=== PATIENT | male | born 1945 | race Caucasian/White ===

== ENCOUNTER 2018-01-28 12:00 | Inpatient (IN) | payer OTHER ==
--- NOTE | 2018-01-28 12:13 | ED ---
HPI Chest Pain - HPI Summary HPI Summary: Patient is brought in by ambulance with concerns of STEMI. Ambulance was not able to transmit EKG, reported x3 attempts to transmit without success. EKG with "ST elevation in V2-V5". STEMI was called at 1157am (prehospital), arrival at 1200pm, provider at bedside at 1200pm. EMS reports that patient has had prior PA years ago. Per EMS, patient has been experiencing chest pain since yesterday. However, when asked about onset of chest pain, patient repeatedly changes his story, stating onset yesterday at first, then states a week ago when asked again, then two weeks ago when asked a third time. Chest pain is left sided, states that he had a left shoulder injury sometime in the past and had thought chest pain was associated with this injury. However, chest pain is reported to not have been reproducible. Pain is rated 9/10 prior to arrival of EMS, nausea is denied. EMS gave oxygen, IV, 324 ASA and 0.4 nitro x2 with some relief in chest pain. [facility] due to concerns of continually decreased affect. [facility]. Patient is on Coumadin and 1 ASA daily, which patient took this morning. Patient is diabetic, BG was measured to be 243 by EMS. PMHx of lung CA, which reported was "doing well" per EMS, Hx of AAA repair reported with midline abd scar apparent. Patient has had "stents for abdomen", no cardiac stents reported. Dr. Shell arrived in ED at 1202. EMS EKG was reviewed, no STEMI, left bundle branch block reported instead. Dr. Hernández present in ED also. Concurs LBBB, no STEMI. On triage, pain is rated 5/10, movement of left shoulder is noted to aggravate pain. Home medications and allergies are reviewed. Vitals are pulse 94, BP 150/79, o2 96. Allergies Allergy/AdvReac Type Severity Reaction Status Date / Time morphine Allergy Hallucinati Verified 01/28/18 14:58 ons Home Medications Acetaminophen [Acetaminophen Extra Strength] 500 mg PO Q4HR PRN 01/28/18 [ History Confirmed 01/28/18] Aspirin EC TAB* [Ecotrin EC Low Dose 81 MG*] 81 mg PO DAILY 01/28/18 [History Confirmed 01/28/18] Atorvastatin* [Lipitor*] 40 mg PO DAILY 01/28/18 [History Confirmed 01/28/18] Folic Acid TAB* [Folvite TAB*] 1 mg PO DAILY 01/28/18 [History Confirmed ] Insulin Aspart Prot/Insuln Asp [Novolog Mix 70-30 Flexpen Syrn] 26 units SUBCUT QPM 01/28/18 [History Confirmed 01/28/18] Insulin Aspart Prot/Insuln Asp [Novolog Mix 70-30 Flexpen Syrn] 33 units SUBCUT QAM 01/28/18 [History Confirmed 01/28/18] LoraTADine TAB(NF) [Claritin 10 MG TAB(NF)] 10 mg PO DAILY PRN 01/28/18 [ History Confirmed 01/28/18] Methotrexate TAB* 20 mg PO WEEKLY 01/28/18 [History Confirmed 01/28/18] Metoprolol Succinate XL TAB* [Toprol XL TAB*] 200 mg PO DAILY 01/28/18 [History Confirmed 01/28/18] Multivitamins/Minerals TAB* [Theragran/minerals TAB*] 1 tab PO DAILY 01/28/18 [ History Confirmed 01/28/18] Omeprazole CAP* [Prilosec CAP* 20 MG] 20 mg PO QAM 01/28/18 [History Confirmed 01/28/18] Sacubitril/Valsartan (NF) [Entresto (NF)] 1 tab PO BID 01/28/18 [ History Confirmed 01/28/18] Salsalate TAB* [Disalcid*] 500 mg PO TID PRN 01/28/18 [History Confirmed ] Warfarin TAB(*) [Coumadin TAB(*)] 5 mg PO BEDTIME 01/28/18 [History Confirmed ] amLODIPine TAB* [Norvasc 5 mg TAB*] 5 mg PO DAILY 01/28/18 [History Confirmed ] - History of Current Complaint Time Seen by Provider: 01/28/18 12:05 Hx Obtained From: Patient, EMS Onset/Duration: Still Present - patient changes his story with regards to onset of chest pain Timing: Constant Initial Severity: Severe - 11/08 Current Severity: Moderate - 5/10 Pain Intensity: 5 Pain Scale Used: 0-10 Numeric - 5/10 Chest Pain Location: Left Anterior Chest Pain Radiates: Yes Chest Pain Radiates To:: Shoulder - left Character: Pressure/Squeezing Aggravating Factor(s): Movement - of left shoulder Alleviating Factor(s): Nothing Associated Signs and Symptoms: Positive: Chest Pain, Other: - POSITIVE: left shoulder pain. Negative: Nausea - Allergy/Home Medications Allergies/Adverse Reactions: Allergies Allergy/AdvReac Type Severity Reaction Status Date / Time morphine Allergy Hallucinati Verified 01/28/18 14:58 ons Home Medications: Home Medications Acetaminophen [Acetaminophen Extra Strength] 500 mg PO Q4HR PRN 01/28/18 [ History Confirmed 01/28/18] Aspirin EC TAB* [Ecotrin EC Low Dose 81 MG*] 81 mg PO DAILY 01/28/18 [History Confirmed 01/28/18] Atorvastatin* [Lipitor*] 40 mg PO DAILY 01/28/18 [History Confirmed 01/28/18] Folic Acid TAB* [Folvite TAB*] 1 mg PO DAILY 01/28/18 [History Confirmed ] Insulin Aspart Prot/Insuln Asp [Novolog Mix 70-30 Flexpen Syrn] 26 units SUBCUT QPM 01/28/18 [History Confirmed 01/28/18] Insulin Aspart Prot/Insuln Asp [Novolog Mix 70-30 Flexpen Syrn] 33 units SUBCUT QAM 01/28/18 [History Confirmed 01/28/18] LoraTADine TAB(NF) [Claritin 10 MG TAB(NF)] 10 mg PO DAILY PRN 01/28/18 [ History Confirmed 01/28/18] Methotrexate TAB* 20 mg PO WEEKLY 01/28/18 [History Confirmed 01/28/18] Metoprolol Succinate XL TAB* [Toprol XL TAB*] 200 mg PO DAILY 01/28/18 [History Confirmed 01/28/18] Multivitamins/Minerals TAB* [Theragran/minerals TAB*] 1 tab PO DAILY 01/28/18 [ History Confirmed 01/28/18] Omeprazole CAP* [Prilosec CAP* 20 MG] 20 mg PO QAM 01/28/18 [History Confirmed 01/28/18] Sacubitril/Valsartan (NF) [Entresto (NF)] 1 tab PO BID 01/28/18 [ History Confirmed 01/28/18] Salsalate TAB* [Disalcid*] 500 mg PO TID PRN 01/28/18 [History Confirmed ] Warfarin TAB(*) [Coumadin TAB(*)] 5 mg PO BEDTIME 01/28/18 [History Confirmed ] amLODIPine TAB* [Norvasc 5 mg TAB*] 5 mg PO DAILY 01/28/18 [History Confirmed ] PMH/Surg Hx/FS Hx/Imm Hx Previously Healthy: No Endocrine/Hematology History: Reports: Hx Diabetes - on insulin Cardiovascular History: Reports: Hx Atrial Fibrillation, Hx Myocardial Infarction Respiratory History: Reports: Hx Lung Cancer - non small cell Sensory History: Denies: Hx Legally Blind, Hx Deafness Opthamlomology History: Denies: Hx Legally Blind EENT History: Denies: Hx Deafness - Cancer History Cancer Type, Location and Year: lung cancer - Surgical History Surgery Procedure, Year, and Place: AAA repair Infectious Disease History: Denies: Traveled Outside the [place] in Last 30 Days - Family History Known Family History: Positive: Cardiac Disease - mother - [place] , Other - father - [place] - Social History Lives: With Family Alcohol Use: Occasionally Substance Use Type: Reports: None Smoking Status (MU): Former Smoker Review of Systems Constitutional: Negative Positive: Chest Pain Respiratory: Negative Negative: Nausea Positive: no symptoms reported Positive: Other - POSITIVE - LEFT SHOULDER PAIN Skin: Negative Neurological: Other - EMS states was concerned re: decreased affect Psychological: Normal All Other Systems Reviewed And Are Negative: Yes Physical Exam - Summary Physical Exam Summary: Appearance: ill-appearing, moderate pain distress, well-nourished Skin: Warm, color reflects adequate perfusion, dry Head: Normal Head/Face inspection, atraumatic Eyes: Conjunctiva clear ENT: Normal inspection Neck: Supple, no nodes, no JVD Respiratory: decreased breath sounds throughout, no respiratory distress Cardio: irregularly irregular, No murmur, pulses normal, brisk capillary refill Abdomen: Soft, nontender Bowel sounds: Present Musculoskeletal: Strength Intact/ROM intact, no calf tenderness, no edema, left shoulder without deformity, full ROM. Psychological: Normal Neuro: Alert, muscle tone normal, no focal deficit Triage Information Reviewed: Yes Vital Signs On Initial Exam: Initial Vitals Temp Pulse Resp BP Pulse Ox 97.5 F 92 20 150/79 96 01/28/18 12:04 01/28/18 12:04 01/28/18 12:04 01/28/18 12:04 01/28/18 12:04 Vital Signs Reviewed: Yes Diagnostics - Laboratory Result Diagrams: 02/01/18 05:40 02/01/18 05:40 Lab Statement: Any lab studies that have been ordered have been reviewed, and results considered in the medical decision making process. - Radiology CXR Radiology Interpretation Completed By: Radiologist Summary of Radiographic Findings: CXR IMPRESSION: 1. CARDIOMEGALY. 2. MASSLIKE OPACIFICATION OF THE LEFT UPPER LUNG. RECOMMEND FURTHER EVALUATION WITH. CONTRAST-ENHANCED CT OF THE CHEST. THIS REPORT WAS REVIEWED BY ED PHYSICIAN. - CT CTA CHEST/ABDOMEN/PELVIS CT Interpretation Completed By: Radiologist Summary of CT Findings: CHEST/ABDOMEN/PELVIS CTA IMPRESSION: No evidence of pulmonary embolus is noted. No evidence of aortic dissection is. noted. The patient is status post aortic stent graft repair with minimal [place] aneurysm. sac remaining. There is a large lung mass in the left upper lobe. This is consistent with neoplastic. process. Small 3 to 5 mm mediastinal lymph nodes are noted. Small bilateral pleural. effusions are noted. Small amount of ascites is noted. Cholelithiasis without biliary duct dilatation. Patient is status post splenectomy with residual accessory splenule. THIS REPORT WAS REVIEWED BY ED PHYSICIAN. - EKG 1201 Cardiac Rate: Other Rate - afib with rate of 80 bpm EKG Rhythm: Atrial Fibrillation ST Segment: Non-Specific Ectopy: None EKG Comparison: Other - no priors to compare to Summary of EKG Findings: EKG showed atrial fibrillation with rate of 80 BPM, IV conduction is prolonged in LBBB pattern, QTC is prolonged at 573, no acute changes, no priors to compare with. Re-Evaluation - Re-Evaluation First Eval Re-Evaluation Time: 12:45 Change: Unchanged Comment: Patient's pain is controlled. Patient's friend Bill is with him. is also coming. Critical value of serum sodium 111 is called by the lab. There are no prior labs to compare on this patient. We have requested the [facility] to send EKGs, notes and labs on the patient. Pt's friend Bill states that pt has seen oncologist in [place], Dr. Rios. Chest Pain Course/Dx - Course Course Of Treatment: Patient is brought in by ambulance with concerns of STEMI. Ambulance was not able to transmit EKG, reported x3 attempts without success. They reported EKG with ST elevation in V2-V5. STEMI was called at 1157am, arrival at 1200pm, provider at bedside at 1200pm. EMS reports that patient has had prior PA years ago. Per EMS, patient has been experiencing chest pain since yesterday. However, when asked about onset of chest pain, patient repeatedly changes his story, stating onset yesterday at first, then states a week ago when asked again, then two weeks ago when asked a third time. Chest pain is left sided, states that he had a left shoulder injury sometime in the past and had thought chest pain was associated with this injury. However, chest pain is reported to not have been reproducible. Pain is rated 9/10 prior to arrival of EMS, nausea is denied. EMS gave oxygen, IV, 324 ASA and 0.4 nitro x2 with some relief in chest pain. had called [facility] where [facility] is being followed, due to concerns of continually decreased affect. [facility]. Patient is on Coumadin and 1 ASA daily, which patient took this morning. Patient is diabetic, BG was measured to be 243 by EMS. PMHx of lung CA, which reported was "doing well" per EMS, Hx of AAA repair reported, patient has had stents for abdomen, no cardiac stents reported. Dr. Shell arrived in ED at 1202. EMS EKG was reviewed, no STEMI, left bundle branch block reported instead. On physical exam, patient is noted to be ill-appearing and in moderate pain distress. Patient's HR is a irregularly irregular. EKG showed atrial fibrillation with rate of 80 BPM, IV conduction is prolonged in LBBB pattern, QTC is prolonged at 573, no acute changes, no priors to compare with. CXR IMPRESSION: 1. CARDIOMEGALY. 2. MASSLIKE OPACIFICATION OF THE LEFT UPPER LUNG. RECOMMEND FURTHER EVALUATION WITH. CONTRAST-ENHANCED CT OF THE CHEST. CHEST/ABDOMEN/PELVIS CTA IMPRESSION: No evidence of pulmonary embolus is noted. No evidence of aortic dissection is. noted. The patient is status post aortic stent graft repair with minimal [place] aneurysm sac remaining. There is a large lung mass in the left upper lobe. This is consistent with neoplasticprocess. Small 3 to 5 mm mediastinal lymph nodes are noted. Small bilateral pleural effusions are noted. Small amount of ascites is noted. Cholelithiasis without biliary duct dilatation. Patient is status post splenectomy with residual accessory splenule. Labs showed 13.9 Hgb, RDW 17, absolute lymphs 0.5, absolute monos 1.1, INR 1.47, D-dimer 294, sodium 111, chloride 77, creatinine 0.53, BUN/creatinine ratio 28.3, glucose 191, lactic acid 1.4, calcium 8.5, magnesium 1.7, total bilirubin 1.3, procalcitonin <0.1, TSH 0.9, T4 9.84, CK-MD was 2.6, BNP was 1709, trop was 0. During ED course, patient received Lasix 40 mg IV ED ONCE ONE as initial treatment for critical value sodium 111, with assessment that pt is total body fluid overload, and diuresis would help increase Na. Serum Osm and Urine Osm and Urine Na sent, to further assess the hyponatremia. 1325 - Patient's was discussed with Dr. Mccollum, Dr. Mccollum accepts patient for admission. - Chest Pain Differential Diagnosis/HQI/PQRI: Acute PA, ACS, Angina, Aortic Aneurysm, CHF, Pulmonary Embolism - Diagnoses Provider Diagnoses: Chest pain, Mass of upper lobe of left lung, Hyponatremia, LBBB (left bundle branch block), CHF (congestive heart failure), Afib, S/P AAA repair, Poorly controlled diabetes mellitus During the Visit The Following Alert/Code Occurred: STEMI - called pre-hospital , then cancelled upon review of [facility] EKG revealing LBBB. No prior EKG to compare. Records from [facility] requested. - Provider Notifications Discussed Care Of Patient With: Jayme Lima Time Discussed With Above Provider: 12:48 Instructed by Provider To: Other - Dr. Lima was consulted on patient case, CTA of chest, abdomen, pelvis to be done to evaluate for PE with hx CA and type of pain, more so than for aorta in pt with hx AAA. 1325 - Patient's case was discussed with Dr. Mccollum, Dr. Mccollum accepts patient for admission. - Critical Care Time Critical Care Time: 30-74 min - 30 mins Discharge - Sign-Out/Discharge Documenting (check all that apply): Patient Departure - admit All imaging exams completed and their final reports reviewed: Yes - Discharge Plan Condition: Stable Disposition: ADMITTED TO [facility] - Billing Disposition and Condition Condition: STABLE Disposition: Admitted to [facility] - Attestation Statements Document Initiated by Kapil: Yes Documenting Scribe: MARIELOS CAMARENA Provider For Whom Kapil is Documenting (Include Credential): NETTA HILLMAN MD Scribe Attestation: MARIELOS Connelly, scribed for NETTA HILLMAN MD on 02/01/18 at 2348. Scribe Documentation Reviewed: Yes Provider Attestation: The documentation as recorded by the donibMARIELOS watson accurately reflects the service I personally performed and the decisions made by me, NETTA HILLMAN MD Status of Scribe Document: Viewed
[2018-01-28 12:20] LABS: ABS Basophils 0 10^3/ul (0-0.2); ABS Eosinophils 0 10^3/ul (0-0.6); ABS Lymphocytes 0.5 10^3/ul (1.0-4.8); ABS Monocytes 1.1 10^3/ul (0-0.8); ABS Neutrophils 7.5 10^3/ul (1.5-7.7); ABS Nucleated RBC 0 10^3/ul; Eosinophil % 0.1 %; Hematocrit 42 % (42-52); Hemoglobin 13.9 g/dl (14.0-18.0); Lymphocyte % 5.9 %; Mean Corpuscular HGB Conc 33 g/dl (31-36); Mean Corpuscular Hemoglobin 29 pg (27-31); Mean Corpuscular Volume 88 fL (80-94); Mean Platelet Volume 7.7 fL (7.4-10.4); Nucleated Red Blood Cells % 0.2; Platelet Count 284 10^3/ul (150-450); Red Blood Count 4.76 10^6/ul (4.00-5.40); Red Cell Distribution Width 17 % (10.5-15); White Blood Count 9.3 10^3/ul (3.5-10.8)
[2018-01-28 12:34] LABS: INR 1.47 (0.77-1.02)
[2018-01-28 12:37] LABS: EGFR Non-African American 153.3 (>60)
[2018-01-28] MEDS ORDERED: Iodixanol* (CONTRAST) 320 MG/ML 100 ML SDV IV ONE (13:11)
[2018-01-28] MEDS ORDERED: Furosemide IV* 10 MG/ML VIAL (40 MG) IV ONE (13:18)
--- NOTE | 2018-01-28 15:31 | HP ---
H&P (Free Text) History and Physical: History and Physical -- Critical Care Limitations in history/physical: none HPI: 72y M w/pmhx of NSC Lung Ca stage 2b (s/p radiation, refused chemo, completed tx 5-6m back), Afib on warfarin, AAA s/p stent, past history of NE ( unclear if stents), DM; has been recently developing shortness of breath and increasing Lower extremity edema as per and patient. He has had left sided chest pain for weeks, initially starting due to a injury. He reported increased pain and was told to come to ER, STEMI alert called and ruled out for suspicion for STEMI. EKG demonstrated LBBB pattern, afib. He reports no fever/chills, no n /v/abd pain. Has LE edema+. no seizures/syncope/changes in mental status as per . I have called his oncologist Dr Rios and obtained further history about his condition. ROS: negative except for pertinent positives mentioned above. PMHx: NSC Lung Ca stage 2b (s/p radiation, refused chemo, completed tx 5-6m back ), Afib on warfarin, AAA s/p stent, past history of NE (unclear if stents), DM PSHx: AAA repair with endovascular stent Family History: mother-NE, father-cancer; unknown in brother () and sister () Social History: Alcohol-none, Smoking-former/stopped , Drug use-none; Job- doesnt work now; family- Allergies: Allergies Allergy/AdvReac Type Severity Reaction Status Date / Time morphine Allergy Hallucinati Verified 01/28/18 14:58 ons Home Medications: Acetaminophen [Acetaminophen Extra Strength] 500 mg PO Q4HR PRN 01/28/18 [ History Confirmed 01/28/18] Aspirin EC TAB* [Ecotrin EC Low Dose 81 MG*] 81 mg PO DAILY 01/28/18 [History Confirmed 01/28/18] Atorvastatin* [Lipitor*] 40 mg PO DAILY 01/28/18 [History Confirmed 01/28/18] Folic Acid TAB* [Folvite TAB*] 1 mg PO DAILY 01/28/18 [History Confirmed ] Insulin Aspart Prot/Insuln Asp [Novolog Mix 70-30 Flexpen Syrn] 26 units SUBCUT QPM 01/28/18 [History Confirmed 01/28/18] Insulin Aspart Prot/Insuln Asp [Novolog Mix 70-30 Flexpen Syrn] 33 units SUBCUT QAM 01/28/18 [History Confirmed 01/28/18] LoraTADine TAB(NF) [Claritin 10 MG TAB(NF)] 10 mg PO DAILY PRN 01/28/18 [ History Confirmed 01/28/18] Methotrexate TAB* 20 mg PO WEEKLY 01/28/18 [History Confirmed 01/28/18] Metoprolol Succinate XL TAB* [Toprol XL TAB*] 200 mg PO DAILY 01/28/18 [History Confirmed 01/28/18] Multivitamins/Minerals TAB* [Theragran/minerals TAB*] 1 tab PO DAILY 01/28/18 [ History Confirmed 01/28/18] Omeprazole CAP* [Prilosec CAP* 20 MG] 20 mg PO QAM 01/28/18 [History Confirmed 01/28/18] Sacubitril/Valsartan (NF) [Entresto (NF)] 1 tab PO BID 01/28/18 [ History Confirmed 01/28/18] Salsalate TAB* [Disalcid*] 500 mg PO TID PRN 01/28/18 [History Confirmed ] Warfarin TAB(*) [Coumadin TAB(*)] 5 mg PO BEDTIME 01/28/18 [History Confirmed ] amLODIPine TAB* [Norvasc 5 mg TAB*] 5 mg PO DAILY 01/28/18 [History Confirmed ] Tele: afib, rate controlled Vitals: Vital Signs Temp 97.5 F 01/28/18 12:04 Pulse 62 01/28/18 14:22 Resp 16 01/28/18 14:22 BP 155/78 01/28/18 14:22 Pulse Ox 96 01/28/18 14:22 Intake & Output 01/27/18 01/28/18 01/28/18 18:59 06:59 18:59 Output Total 400 Balance -400 Output: Urine 400 O2/Vent: NC Infusions: heplock Current Medications: Amlodipine Besylate (Norvasc Tab*) 5 mg PO DAILY [facility] Aspirin (Aspirin Ec Tab*) 81 mg PO DAILY [facility] Atorvastatin Calcium (Lipitor*) 40 mg PO DAILY [facility] Folic Acid (Folvite Tab*) 1 mg PO DAILY [facility] Metoprolol Succinate (Toprol Xl Tab*) 200 mg PO DAILY [facility] Omeprazole (Prilosec Cap*) 20 mg PO QAM [facility] Sacubitril/Valsartan (Entresto (Nf)) 1 tab PO BID [facility] Physical Exam: General: awake, alert, no distress, no diaphoresis Head: normocephalic, atraumatic HEENT: no pallor, no icterus, moist mucous membranes Neck: soft, supple, no jvd, no stridor CVS: normal rate, regular, no murmur Resp: bilateral air entry, no rhales, no wheeze, no rhonchi, no acc muscle use Abdomen: soft, obese, nontender, nondistended, bowel sounds present Ext: pulses+, warm, 3+ LE edema bilaterally Skin: intact Neuro: awake, alert, orientedx3, moving all extremities, no gross focal deficit Labs: Laboratory Results - last 24 hr 01/28/18 01/28/18 01/28/18 12:04 12:04 12:04 WBC 9.3 RBC 4.76 Hgb 13.9 L Hct 42 MCV 88 MCH 29 MCHC 33 RDW 17 H Plt Count 284 MPV 7.7 Neut % (Auto) 81.2 Lymph % (Auto) 5.9 [place] % (Auto) 12.4 Eos % (Auto) 0.1 Baso % (Auto) 0.4 Absolute Neuts (auto) 7.5 Absolute Lymphs (auto) 0.5 L Absolute Monos (auto) 1.1 H Absolute Eos (auto) 0 Absolute Basos (auto) 0 Absolute Nucleated RBC 0 Nucleated RBC % 0.2 INR (Anticoag Therapy) 1.47 H APTT 31.8 D-Dimer, Quantitative 294 H Sodium 111 L* Potassium 4.5 Chloride 77 L Carbon Dioxide 25 Anion Gap 9 BUN 15 Creatinine 0.53 L Est GFR ( Amer) 185.4 Est GFR (Non-Af Amer) 153.3 BUN/Creatinine Ratio 28.3 H Glucose 191 H Serum Osmolality Lactic Acid Calcium 8.5 L Magnesium 1.7 L Total Bilirubin 1.30 H AST 18 ALT 23 Alkaline Phosphatase 67 Total Creatine Kinase 36 CK-MB (CK-2) 2.6 Troponin I 0.00 B-Natriuretic Peptide Total Protein 6.2 L Albumin 3.4 Globulin 2.8 Albumin/Globulin Ratio 1.2 Procalcitonin TSH 0.90 Thyroxine (T4) 9.84 01/28/18 01/28/18 01/28/18 12:04 12:04 12:04 WBC RBC Hgb Hct MCV MCH MCHC RDW Plt Count MPV Neut % (Auto) Lymph % (Auto) [place] % (Auto) Eos % (Auto) Baso % (Auto) Absolute Neuts (auto) Absolute Lymphs (auto) Absolute Monos (auto) Absolute Eos (auto) Absolute Basos (auto) Absolute Nucleated RBC Nucleated RBC % INR (Anticoag Therapy) APTT D-Dimer, Quantitative Sodium Potassium Chloride Carbon Dioxide Anion Gap BUN Creatinine Est GFR ( Amer) Est GFR (Non-Af Amer) BUN/Creatinine Ratio Glucose Serum Osmolality Lactic Acid 1.4 Calcium Magnesium Total Bilirubin AST ALT Alkaline Phosphatase Total Creatine Kinase CK-MB (CK-2) Troponin I B-Natriuretic Peptide 1709 H Total Protein Albumin Globulin Albumin/Globulin Ratio Procalcitonin < 0.1 TSH Thyroxine (T4) 01/28/18 12:04 WBC RBC Hgb Hct MCV MCH MCHC RDW Plt Count MPV Neut % (Auto) Lymph % (Auto) [place] % (Auto) Eos % (Auto) Baso % (Auto) Absolute Neuts (auto) Absolute Lymphs (auto) Absolute Monos (auto) Absolute Eos (auto) Absolute Basos (auto) Absolute Nucleated RBC Nucleated RBC % INR (Anticoag Therapy) APTT D-Dimer, Quantitative Sodium Potassium Chloride Carbon Dioxide Anion Gap BUN Creatinine Est GFR ( Amer) Est GFR (Non-Af Amer) BUN/Creatinine Ratio Glucose Serum Osmolality 245 L Lactic Acid Calcium Magnesium Total Bilirubin AST ALT Alkaline Phosphatase Total Creatine Kinase CK-MB (CK-2) Troponin I B-Natriuretic Peptide Total Protein Albumin Globulin Albumin/Globulin Ratio Procalcitonin TSH Thyroxine (T4) Imaging: CTA chest/abd/pelvis 01/28 no PE; Left upper lobe mass+ (report reviewed) Assessment: 72y M w/pmhx of NSC Lung Ca stage 2b (s/p radiation, refused chemo, completed tx 5-6m back), Afib on warfarin, AAA s/p stent, past history of NE ( unclear if stents), DM; has been recently developing shortness of breath and increasing Lower extremity edema as per and patient. He has had left sided chest pain for weeks, initially starting due to a injury. He reported increased pain and was told to come to ER, STEMI alert called and ruled out for suspicion for STEMI. EKG demonstrated LBBB pattern, afib. Found to have severe hyponatremia of 111, with signs of peripheral edema. -Severe Hyponatremia, with evidence of hypervolemia, mild symptoms -Peripheral edema/volume overload -suspected CHF, unspecified type -Chest pain h/o NSC Lung CA s/p radiation Plan: Neuro- awake/alert. Mild symptoms of hyponatremia present as per history, no seizures. No indication for acute hypertonic saline administration. Delirium prec. Fall prec. CVS- -Chest pain, unclear if purely cardiac. Trop neg. Musculoskeletal? Trend troponins. EKG with afib/LBBB pattern. -Afib, likely for the reason warfarin being taken. Rate controlled. Cont metoprolol. INR subtherapeutic. Start lovenox 1mg/kg sq bid. -ECHO to eval LV function. LE edema+, would benefit from IV diuretics. Monitor Na q4h. -Cont asa for old NE? and for AAA stent. Resp- no resp distress, on NC. CTA without PE. Noted FRANCHESCA mass, confirmed from oncologist. s/p radiation. No acute infiltrative process. ID- afebrile. Wbc normal. No acute infectious process. No abx indicated. GI- diabetic/cardiac diet. Fluid restrict for now. GI proph. Renal- -Cr stable. K okay. NO acidosis -Severe hyponatremia, with evidence of hypervolemia. Pending urine osm and urine Na levels. Not on diuretics, reviewed other medications. Has NSCL Ca, which typically doesnt cause SIADH production exogenously. May be related to possible congestive heart failure. Given no severe neurological symptoms, will hold off hypertonic saline administration. IV Lasix 40mg x1 given in ER already. Check BMP q4h. if improving with diuretics, will continue. Fluid restrict. Follow urine output. May need IV NS also side by side, a relatively hypertonic solution for patient. Slow diuresis. Likely ongoing hyponatremia so will treat as chronic, goal Na change 10-12/day and 1/hr maximal rate. check tsh, r/o adrenal insuff; noted to be on prednisone for SOB recently but not chronically. -nephrology consult for assistance Heme- hg stable. Plt stable. INR subtherap; start lovenox 1mg/kg bid sq tx for Afib. -unclear reason for methotrexate administration. will need to followup. Endo- fingerstick achs; convert novolog 70/30 33/26 U to lantus, will followup with pharmacy. Add shortacting aspart achs. Check tsh and hba1c Musculsk- pressure ulcer prophylaxis. Bedrest. Wounds- none Nutrition- cardiac/diabetic diet, fluid restrict DVT prophylaxis: lovenox sq GI prophylaxis: ppi Central Line: no Arterial Line: no Briseno Cathetor: no Disposition: admit to ICU; expected LOS >2 midnights Code Status: full code Total Critical Care time is 45 minutes, excluding procedures/teaching Mayo Sterling MD Oil Burn[employer] Technician (Electronically Signed)
--- NOTE | 2018-01-28 16:00 | ECHO ---
Patient: RAJEEV CHRISTIANSON [facility] Rec#: [id number] : 1945 Date: 01/28/2018 Age: 72y Height: 168 cm / 66.1 in Weight: 109.1 kg / 240.5 lbs Sex: M BSA: 2.17 Room#: -14 Admit Date#: 01/28/2018 Type: Inpatient Referring: Mayo Sterling Reading: Aiden Shell DO Farm Contractor Buyer: Shelby De RDCS Transthoracic Echocardiogram Indication: Congestive heart failure BP: 155/78 HR: 61 Rhythm: NSR with PACs Findings History: AK, ischemic cardiomyopathy, lung cancer, DM. Technical Comments: The study quality is fair. Completed at 1600. Left Ventricle: The left ventricular chamber size is mildly dilated. Mild concentric left ventricular hypertrophy is observed. There is global hypokinesis of the left ventricle with minor regional variation. There is severely decreased left ventricular systolic function. The estimated ejection fraction is less than 20%. There is a left ventricular septal wall motion abnormality observed, possibly due to the presence of a right bundle branch block. The assessment of diastolic function is non-diagnostic. Left Atrium: The left atrium is severely dilated. Right Ventricle: The right ventricle is moderately dilated. The right ventricular global systolic function is moderately reduced. Right Atrium: The right atrial cavity size is severely dilated. Aortic Valve: The aortic valve is trileaflet. The aortic valve leaflets are mildly thickened. There is a trace of aortic regurgitation. There is no evidence of aortic stenosis. Mitral Valve: Moderate mitral annular calcification present. The mitral valve leaflets are mildly thickened. There is mild to moderate mitral regurgitation. There is no evidence of mitral stenosis. Tricuspid Valve: The tricuspid valve leaflets are normal. There is mild to moderate tricuspid regurgitation. The right ventricular systolic pressure is estimated at 52 mmHg. There is evidence of moderate pulmonary hypertension. There is no tricuspid stenosis. Pulmonic Valve: The pulmonic valve appears normal. There is a trace pulmonic regurgitation. There is no pulmonic stenosis. Pericardium: There is no significant pericardial effusion. Aorta: There is borderline dilatation of the ascending aorta. The aortic arch is not well visualized. There is mild dilatation of the aortic root. Pulmonary Artery: The main pulmonary artery is not well visualized. Venous: The inferior vena cava is dilated. There is an approximate 50% respiratory change in the inferior vena cava dimension. Conclusions The left ventricular chamber size is mildly dilated. Mild concentric left ventricular hypertrophy is observed. There is severely decreased left ventricular systolic function. The estimated ejection fraction is less than 20%. The left atrium is severely dilated. The right ventricle is moderately dilated. The right ventricular global systolic function is moderately reduced. There is mild to moderate mitral and tricuspid regurgitation. There is evidence of moderate pulmonary hypertension. None prior for comparison at time of interpretation Measurements Name Value Normal Range RVIDd (AP) 2D 4.2 cm (0.9 - 2.6) RVDdMajor (2D) 5.7 cm (2.2 - 4.4) RAd ISD 4CH 7.4 cm (3.4 - 4.9) RA (A4C)W 5.7 cm (2.9 - 4.6) IVSd (2D) 1.2 cm (0.6 - 1) LVPWd (2D) 1.3 cm (0.6 - 1) LVIDd (2D) 5.8 cm (3.6 - 5.4) LVIDs (2D) 5.7 cm - LV FS (2D) 1 % (25 - 45) Aortic Annulus 2 cm (1.4 - 2.6) Ao root diameter (2D) 4 cm (2.1 - 3.5) Ascending Ao 3.4 cm (2.1 - 3.4) LA dimension (AP) 2D 5.3 cm (2.3 - 3.8) LAd ISD 4CH 7.3 cm (2.9 - 5.3) LA ISD 4CH W 5.6 cm (2.5 - 4.5) Name Value Normal Range LA ESV BP (A/L) index 70 ml/m2 - Name Value Normal Range MV E-wave Vmax 1.2 m/sec - MV deceleration time 167 msec - LV septal e' Vmax 0.03 m/sec - LV lateral e' Vmax 0.08 m/sec - LV E:e' septal ratio 40 ratio - LV E:e' lateral ratio 15 ratio - Name Value Normal Range AV Vmax 1.4 m/sec - AV VTI 23 cm - AV peak gradient 8 mmHg - AV mean gradient 4 mmHg - LVOT Vmax 0.8 m/sec - LVOT VTI 12.7 cm - LVOT peak gradient 2 mmHg - LVOT mean gradient 1 mmHg - ELISSA Vmax 0.5 m/sec - Name Value Normal Range TR Vmax 3.3 m/sec - TR peak gradient 44 mmHg - RAP 8 mmHg - RVSP 52 mmHg - IVC diameter 2.9 cm - Name Value Normal Range PV Vmax 1.2 m/sec - PV peak gradient 6 mmHg -
[2018-01-28 16:07] LABS: EGFR Non-African American 153.3 (>60)
[2018-01-28] MEDS ORDERED: Magnesium Sulfate IV* 2 GM in NS 0.9% 100 ML* 100 ML IV ONE (17:00)
[2018-01-28] MEDS: Insulin ISOPH/REG 70/30 (*) 1 UNITS UNIT SUBCUT SCH ×2 (19:16→21:17)
[2018-01-28 20:49] LABS: EGFR Non-African American 132.8 (>60)
[2018-01-28] MEDS ORDERED: Furosemide IV* 10 MG/ML 2 ML VIAL (20 MG) IV ONE (21:00)
[2018-01-28] MEDS ORDERED: Furosemide IV* 10 MG/ML 2 ML VIAL (20 MG) ONE (21:13)
[2018-01-28] MEDS: SACUBITRIL PO SCH (21:17)
[2018-01-28] MEDS: VALSARTAN PO SCH (21:17)
[2018-01-28] MEDS: Nystatin TOP POWDER* 15 GM BTL TOPICAL SCH (22:00)
[2018-01-29 00:39] LABS: EGFR Non-African American 140.9 (>60)
[2018-01-29] MEDS ORDERED: Potassium Chlor TAB* 20 MEQ TAB.ER PO ONE ×2 (00:46→21:16)
[2018-01-29] MEDS ORDERED: ALPRAZolam TAB* 0.25 MG PO ONE (00:46)
[2018-01-29 04:19] LABS: Hematocrit 39 % (42-52); Mean Corpuscular HGB Conc 33 g/dl (31-36); Mean Corpuscular Hemoglobin 29 pg (27-31); Mean Corpuscular Volume 88 fL (80-94); Mean Platelet Volume 7.2 fL (7.4-10.4); Platelet Count 263 10^3/ul (150-450); Red Blood Count 4.43 10^6/ul (4.00-5.40); Red Cell Distribution Width 18 % (10.5-15); White Blood Count 10.2 10^3/ul (3.5-10.8)
[2018-01-29 04:25] LABS: INR 1.35 (0.77-1.02)
[2018-01-29 04:37] LABS: EGFR Non-African American 143.8 (>60)
[2018-01-29] MEDS: Atorvastatin* 40 MG TAB PO SCH (08:17)
[2018-01-29] MEDS: Aspirin EC TAB* 81 MG TAB.EC PO SCH (08:17)
[2018-01-29] MEDS: Insulin ISOPH/REG 70/30 (*) 1 UNITS UNIT SUBCUT SCH ×3 (08:18→18:58)
[2018-01-29] MEDS: Folic Acid TAB* 1 MG PO SCH (08:18)
[2018-01-29] MEDS: amLODIPine TAB* 5 MG PO SCH (08:18)
[2018-01-29] MEDS: SACUBITRIL PO SCH ×2 (08:48→20:26)
[2018-01-29] MEDS: VALSARTAN PO SCH ×2 (08:48→20:26)
[2018-01-29] MEDS: Nystatin TOP POWDER* 15 GM BTL TOPICAL SCH ×2 (08:48→20:26)
[2018-01-29] MEDS ORDERED: Metoprolol Succinate XL TAB* 100 MG PO SCH (09:00)
[2018-01-29 09:19] LABS: EGFR Non-African American 153.3 (>60)
--- NOTE | 2018-01-29 09:51 | PN ---
Progress Note - Progress Note Date of Service: 01/29/18 Note: Progress Note -- Critical Care 24 hour events: -overnight no complaints offered, awake/alert -good urine output -afebrile Tele: afib, fariha Vitals: Vital Signs Temp 97.5 F 01/29/18 08:01 Pulse 47 01/29/18 08:01 Resp 23 01/29/18 08:01 BP 120/47 01/29/18 08:01 Pulse Ox 93 01/29/18 08:01 Intake & Output 01/28/18 01/29/18 01/29/18 18:59 06:59 18:59 Intake Total 120 400 Output Total 1750 2525 70 Balance -0 -5 -70 Weight 111.8 kg 109.8 kg Intake: IV Fluids 101 NS (0.9%) 101 IVPB 59 Magnesium 59 Oral 120 240 Output: Urine 1750 Briseno 2525 70 Other: Estimated Void Large # Voids 1 O2/Vent: NC 2L Infusions: heplock Current Medications: Amlodipine Besylate (Norvasc Tab*) 5 mg PO DAILY [facility] Last Admin: 01/29/18 08:18 Dose: 5 mg Aspirin (Aspirin Ec Tab*) 81 mg PO DAILY [facility] Last Admin: 01/29/18 08:17 Dose: 81 mg Atorvastatin Calcium (Lipitor*) 40 mg PO DAILY [facility] Last Admin: 01/29/18 08:17 Dose: 40 mg Folic Acid (Folvite Tab*) 1 mg PO DAILY [facility] Last Admin: 01/29/18 08:18 Dose: 1 mg Insulin Human Isoph/Insulin Regular (Humulin 70/30 (*)) 33 units SUBCUT 0800 [facility] Last Admin: 01/29/18 08:34 Dose: Not Given Insulin Human Isoph/Insulin Regular (Humulin 70/30 (*)) 26 units SUBCUT 1700 [facility] Last Admin: 01/28/18 21:17 Dose: 26 units Metoprolol Succinate (Toprol Xl Tab*) 100 mg PO DAILY [facility] Nystatin (Nystatin Top Powder*) 1 applic TOPICAL BID [facility] Last Admin: 01/29/18 08:48 Dose: 1 applic Omeprazole (Prilosec Cap*) 20 mg PO QAM@0730 [facility] Sacubitril/Valsartan (Entresto (Nf)) 1 tab PO BID [facility] Last Admin: 01/29/18 08:48 Dose: 1 tab Physical Exam: General: awake, alert, no distress, no diaphoresis Head: normocephalic, atraumatic HEENT: no pallor, no icterus, moist mucous membranes Neck: soft, supple, no jvd, no stridor CVS: normal rate, regular, no murmur Resp: bilateral air entry, no rhales, no wheeze, no rhonchi, no acc muscle use Abdomen: soft, obese, nontender, nondistended, bowel sounds present Ext: pulses+, warm, 2+ LE edema bilaterally Skin: intact Neuro: awake, alert, orientedx3, moving all extremities, no gross focal deficit Labs: Laboratory Results - last 24 hr 01/28/18 01/28/18 01/28/18 12:04 12:04 12:04 WBC 9.3 RBC 4.76 Hgb 13.9 L Hct 42 MCV 88 MCH 29 MCHC 33 RDW 17 H Plt Count 284 MPV 7.7 Neut % (Auto) 81.2 Lymph % (Auto) 5.9 [place] % (Auto) 12.4 Eos % (Auto) 0.1 Baso % (Auto) 0.4 Absolute Neuts (auto) 7.5 Absolute Lymphs (auto) 0.5 L Absolute Monos (auto) 1.1 H Absolute Eos (auto) 0 Absolute Basos (auto) 0 Absolute Nucleated RBC 0 Nucleated RBC % 0.2 INR (Anticoag Therapy) 1.47 H APTT 31.8 D-Dimer, Quantitative 294 H Sodium 111 L* Potassium 4.5 Chloride 77 L Carbon Dioxide 25 Anion Gap 9 BUN 15 Creatinine 0.53 L Est GFR ( Amer) 185.4 Est GFR (Non-Af Amer) 153.3 BUN/Creatinine Ratio 28.3 H Glucose 191 H POC Glucose (mg/dL) Hemoglobin A1c Serum Osmolality Lactic Acid Calcium 8.5 L Magnesium 1.7 L Total Bilirubin 1.30 H AST 18 ALT 23 Alkaline Phosphatase 67 Total Creatine Kinase 36 CK-MB (CK-2) 2.6 Troponin I 0.00 B-Natriuretic Peptide Total Protein 6.2 L Albumin 3.4 Globulin 2.8 Albumin/Globulin Ratio 1.2 Procalcitonin TSH 0.90 Thyroxine (T4) 9.84 Urine Osmolality U Sodium Concentration 01/28/18 01/28/18 01/28/18 12:04 12:04 12:04 WBC RBC Hgb Hct MCV MCH MCHC RDW Plt Count MPV Neut % (Auto) Lymph % (Auto) [place] % (Auto) Eos % (Auto) Baso % (Auto) Absolute Neuts (auto) Absolute Lymphs (auto) Absolute Monos (auto) Absolute Eos (auto) Absolute Basos (auto) Absolute Nucleated RBC Nucleated RBC % INR (Anticoag Therapy) APTT D-Dimer, Quantitative Sodium Potassium Chloride Carbon Dioxide Anion Gap BUN Creatinine Est GFR ( Amer) Est GFR (Non-Af Amer) BUN/Creatinine Ratio Glucose POC Glucose (mg/dL) Hemoglobin A1c Serum Osmolality Lactic Acid 1.4 Calcium Magnesium Total Bilirubin AST ALT Alkaline Phosphatase Total Creatine Kinase CK-MB (CK-2) Troponin I B-Natriuretic Peptide 1709 H Total Protein Albumin Globulin Albumin/Globulin Ratio Procalcitonin < 0.1 TSH Thyroxine (T4) Urine Osmolality U Sodium Concentration 01/28/18 01/28/18 01/28/18 12:04 15:33 16:30 WBC RBC Hgb Hct MCV MCH MCHC RDW Plt Count MPV Neut % (Auto) Lymph % (Auto) [place] % (Auto) Eos % (Auto) Baso % (Auto) Absolute Neuts (auto) Absolute Lymphs (auto) Absolute Monos (auto) Absolute Eos (auto) Absolute Basos (auto) Absolute Nucleated RBC Nucleated RBC % INR (Anticoag Therapy) APTT D-Dimer, Quantitative Sodium 114 L* Potassium 4.5 Chloride 79 L Carbon Dioxide 25 Anion Gap 10 BUN 13 Creatinine 0.53 L Est GFR ( Amer) 185.4 Est GFR (Non-Af Amer) 153.3 BUN/Creatinine Ratio 24.5 H Glucose 198 H POC Glucose (mg/dL) Hemoglobin A1c Serum Osmolality 245 L Lactic Acid Calcium 8.6 Magnesium Total Bilirubin AST ALT Alkaline Phosphatase Total Creatine Kinase CK-MB (CK-2) Troponin I 0.01 B-Natriuretic Peptide Total Protein Albumin Globulin Albumin/Globulin Ratio Procalcitonin TSH Thyroxine (T4) Urine Osmolality U Sodium Concentration 67 01/28/18 01/28/18 01/29/18 16:30 20:20 00:13 WBC RBC Hgb Hct MCV MCH MCHC RDW Plt Count MPV Neut % (Auto) Lymph % (Auto) [place] % (Auto) Eos % (Auto) Baso % (Auto) Absolute Neuts (auto) Absolute Lymphs (auto) Absolute Monos (auto) Absolute Eos (auto) Absolute Basos (auto) Absolute Nucleated RBC Nucleated RBC % INR (Anticoag Therapy) APTT D-Dimer, Quantitative Sodium 114 L* 115 L* Potassium TNP 3.5 Chloride 80 L 81 L Carbon Dioxide 26 28 Anion Gap 8 6 BUN 11 11 Creatinine 0.60 L 0.57 L Est GFR ( Amer) 160.7 170.5 Est GFR (Non-Af Amer) 132.8 140.9 BUN/Creatinine Ratio 18.3 19.3 Glucose 211 H 183 H POC Glucose (mg/dL) Hemoglobin A1c Serum Osmolality Lactic Acid Calcium 8.0 L 7.7 L Magnesium Total Bilirubin AST ALT Alkaline Phosphatase Total Creatine Kinase CK-MB (CK-2) Troponin I 0.01 B-Natriuretic Peptide Total Protein Albumin Globulin Albumin/Globulin Ratio Procalcitonin TSH Thyroxine (T4) Urine Osmolality 250 U Sodium Concentration 01/29/18 01/29/18 01/29/18 04:11 04:11 04:11 WBC 10.2 RBC 4.43 Hgb 13.0 L Hct 39 L MCV 88 MCH 29 MCHC 33 RDW 18 H Plt Count 263 MPV 7.2 L Neut % (Auto) Lymph % (Auto) [place] % (Auto) Eos % (Auto) Baso % (Auto) Absolute Neuts (auto) Absolute Lymphs (auto) Absolute Monos (auto) Absolute Eos (auto) Absolute Basos (auto) Absolute Nucleated RBC Nucleated RBC % INR (Anticoag Therapy) APTT D-Dimer, Quantitative Sodium 118 L* Potassium 3.5 Chloride 83 L Carbon Dioxide 30 Anion Gap 5 BUN 10 Creatinine 0.56 L Est GFR ( Amer) 174.0 Est GFR (Non-Af Amer) 143.8 BUN/Creatinine Ratio 17.9 Glucose 114 H POC Glucose (mg/dL) Hemoglobin A1c 8.3 H Serum Osmolality Lactic Acid Calcium 7.7 L Magnesium Total Bilirubin AST ALT Alkaline Phosphatase Total Creatine Kinase CK-MB (CK-2) Troponin I B-Natriuretic Peptide Total Protein Albumin Globulin Albumin/Globulin Ratio Procalcitonin TSH Thyroxine (T4) Urine Osmolality U Sodium Concentration 01/29/18 01/29/18 01/29/18 04:11 08:27 08:30 WBC RBC Hgb Hct MCV MCH MCHC RDW Plt Count MPV Neut % (Auto) Lymph % (Auto) [place] % (Auto) Eos % (Auto) Baso % (Auto) Absolute Neuts (auto) Absolute Lymphs (auto) Absolute Monos (auto) Absolute Eos (auto) Absolute Basos (auto) Absolute Nucleated RBC Nucleated RBC % INR (Anticoag Therapy) 1.35 H APTT D-Dimer, Quantitative Sodium 120 L Potassium TNP Chloride 83 L Carbon Dioxide 30 Anion Gap 7 BUN 11 Creatinine 0.53 L Est GFR ( Amer) 185.4 Est GFR (Non-Af Amer) 153.3 BUN/Creatinine Ratio 20.8 H Glucose 77 POC Glucose (mg/dL) 97 Hemoglobin A1c Serum Osmolality Lactic Acid Calcium 7.9 L Magnesium Total Bilirubin AST ALT Alkaline Phosphatase Total Creatine Kinase CK-MB (CK-2) Troponin I B-Natriuretic Peptide Total Protein Albumin Globulin Albumin/Globulin Ratio Procalcitonin TSH Thyroxine (T4) Urine Osmolality U Sodium Concentration Imaging: CTA chest/abd/pelvis 01/28 no PE; Left upper lobe mass+ (report reviewed) Assessment: 72y M w/pmhx of [facility] Lung Ca stage 2b (s/p radiation, refused chemo, completed tx 5-6m back), Afib on warfarin, AAA s/p stent, past history of PA ( unclear if stents), DM; has been recently developing shortness of breath and increasing Lower extremity edema as per and patient. He has had left sided chest pain for weeks, initially starting due to a injury. He reported increased pain and was told to come to ER, STEMI alert called and ruled out for suspicion for STEMI. EKG demonstrated LBBB pattern, afib. Found to have severe hyponatremia of 111, with signs of peripheral edema. -Severe Hyponatremia, with evidence of hypervolemia, mild symptoms -Peripheral edema/volume overload -suspected CHF, unspecified type -Chest pain h/o [facility] Lung CA s/p radiation Plan: Neuro- awake/alert. asymptomatic. Delirium prec. Fall prec. CVS- -Chest pain resolved it seems. Trop neg. Musculoskeletal? EKG with afib/LBBB pattern. -Afib, farhia 50s. Rate controlled. Dec Metoprolol succinate to 100mg daily. INR subtherapeutic. restart warfarin, bridge with lovenox 1mg/kg sq bid. -TTE 01/28 with severe LV systolic dysfunction, mod MR, mild RV dysfunction, pulm htn+. [facility] to [facility] if [facility] old and workup performed. He is unclear if he was advised AICD -LE edema+. likely from CHF + increased free water intake and no sodium intake. restrict free water. diuresed well with lasix. given Na is increasing now, will re-eval tomorrow and start low dose daily lasix to continue to augment urine output. -Cont asa for old PA? and for AAA stent. Resp- no resp distress, on NC. CTA without PE. Noted FRANCHESCA mass, confirmed from oncologist. s/p radiation. No acute infiltrative process. ID- afebrile. Wbc normal. No acute infectious process. No abx indicated. GI- diabetic/cardiac diet. Fluid restrict for now. GI proph. Renal- -Cr stable. K okay. NO acidosis -Severe hyponatremia, improving, no symptoms. Seems he has a lot of free water intake and restricted salt completely, combined with his severe LV dysfunction likely caused the hyponatremia. Urine osmo and serum osmo low, so likely was taking in more free water. Diuretics did help but he was advised to restrict free water to lower quantities, and not fully restrict sodium intake. Will need diuretics daily for LE edema but re-eval tomorrow and add low dose furosemide 20mg based on subsequent sodium levels. Sodium has changed by 9 in 20 hours. -discussed with nephrology Heme- hg stable. Plt stable. INR subtherap; start lovenox 1mg/kg bid sq tx for Afib, start warfarin today. -unclear reason for methotrexate administration. will need to followup. Endo- fingerstick achs; converted novolog mix to humulin 70/30 33/26 U. TSH normal. [id number] tsh and hba1c 8.3 Musculsk- pressure ulcer prophylaxis. oob to chair as tolerated Wounds- none Nutrition- cardiac/diabetic diet, fluid restrict DVT prophylaxis: lovenox sq/warfarin GI prophylaxis: ppi Central Line: no Arterial Line: no Briseno Cathetor: no Disposition: can be transferred to medical floor later today. Code Status: full code Mayo Sterling MD [employer] (Electronically Signed)
[2018-01-29] MEDS: Omeprazole CAP* 20 MG PO SCH (10:39)
[2018-01-29] MEDS: Enoxaparin(*) 150 MG/ML 1 ML SYRINGE SUBCUT SCH ×2 (11:46→20:26)
[2018-01-29 14:13] LABS: EGFR Non-African American 171.8 (>60)
[2018-01-29 15:11] LABS: EGFR Non-African American 176.1 (>60)
[2018-01-29] MEDS ORDERED: Furosemide IV* 10 MG/ML VIAL (40 MG) IV ONE ×2 (15:31→21:11)
[2018-01-29] MEDS ORDERED: Furosemide IV* 10 MG/ML 2 ML VIAL (20 MG) IV ONE (16:00)
[2018-01-29] MEDS ORDERED: Warfarin TAB(*) 5 MG PO ONE (17:00)
[2018-01-29 21:00] LABS: EGFR Non-African American 127.9 (>60)
[2018-01-30 05:21] LABS: Hematocrit 39 % (42-52); Hemoglobin 12.9 g/dl (14.0-18.0); Mean Corpuscular HGB Conc 33 g/dl (31-36); Mean Corpuscular Hemoglobin 30 pg (27-31); Mean Corpuscular Volume 89 fL (80-94); Mean Platelet Volume 7.4 fL (7.4-10.4); Platelet Count 244 10^3/ul (150-450); Red Blood Count 4.35 10^6/ul (4.00-5.40); Red Cell Distribution Width 18 % (10.5-15); White Blood Count 8.6 10^3/ul (3.5-10.8)
[2018-01-30 05:34] LABS: INR 1.25 (0.77-1.02)
[2018-01-30 05:36] LABS: EGFR Non-African American 127.9 (>60)
[2018-01-30] MEDS: Omeprazole CAP* 20 MG PO SCH (07:21)
[2018-01-30] MEDS ORDERED: Metoprolol Succinate XL TAB* 100 MG PO SCH ×2 (09:00)
[2018-01-30] MEDS: Insulin ISOPH/REG 70/30 (*) 1 UNITS UNIT SUBCUT SCH ×2 (09:17→18:13)
[2018-01-30] MEDS ORDERED: Furosemide IV* 10 MG/ML VIAL (40 MG) IV ONE (09:39)
[2018-01-30] MEDS ORDERED: Potassium Chlor TAB* 20 MEQ TAB.ER PO ONE (09:41)
[2018-01-30] MEDS: Atorvastatin* 40 MG TAB PO SCH (10:40)
[2018-01-30] MEDS: Aspirin EC TAB* 81 MG TAB.EC PO SCH (10:40)
[2018-01-30] MEDS: VALSARTAN PO SCH (10:41)
[2018-01-30] MEDS: SACUBITRIL PO SCH (10:41)
[2018-01-30] MEDS: Folic Acid TAB* 1 MG PO SCH (10:41)
[2018-01-30] MEDS: Nystatin TOP POWDER* 15 GM BTL TOPICAL SCH ×2 (10:41→21:30)
--- NOTE | 2018-01-30 10:56 | PN ---
Progress Note - Progress Note Date of Service: 01/30/18 Note: Progress Note -- Critical Care 24 hour events: -awake/alert, no complaints -in chair, no resp distress, on NC -making urine Tele: afib, fariha to 50s Vitals: Vital Signs Temp 97.7 F 01/30/18 07:39 Pulse 51 01/30/18 07:39 Resp 18 01/30/18 07:39 BP 130/64 01/30/18 07:39 Pulse Ox 97 01/30/18 07:39 Intake & Output 01/29/18 01/30/18 01/30/18 18:59 06:59 18:59 Intake Total 410 500 Output Total 1190 1415 50 Balance -780 -915 -50 Weight 109.2 kg Intake: Oral 410 500 Output: Urine 80 Briseno 1110 1415 50 O2/Vent: NC 2L Infusions: heplock Current Medications: Aspirin (Aspirin Ec Tab*) 81 mg PO DAILY [facility] Last Admin: 01/30/18 10:40 Dose: 81 mg Atorvastatin Calcium (Lipitor*) 40 mg PO DAILY [facility] Last Admin: 01/30/18 10:40 Dose: 40 mg Folic Acid (Folvite Tab*) 1 mg PO DAILY [facility] Last Admin: 01/30/18 10:41 Dose: 1 mg Furosemide (Lasix Iv*) 40 mg IV DAILY [facility] Insulin Human Isoph/Insulin Regular (Humulin 70/30 (*)) 33 units SUBCUT 0800 [facility] Last Admin: 01/30/18 09:17 Dose: 33 units Insulin Human Isoph/Insulin Regular (Humulin 70/30 (*)) 26 units SUBCUT 1700 [facility] Last Admin: 01/29/18 18:58 Dose: 26 units Nystatin (Nystatin Top Powder*) 1 applic TOPICAL BID [facility] Last Admin: 01/30/18 10:41 Dose: 1 applic Omeprazole (Prilosec Cap*) 20 mg PO QAM@0730 [facility] Last Admin: 01/30/18 07:21 Dose: 20 mg Sacubitril/Valsartan (Entresto (Nf)) 1 tab PO BID [facility] Last Admin: 01/30/18 10:41 Dose: Not Given Physical Exam: General: awake, alert, no distress, no diaphoresis Head: normocephalic, atraumatic HEENT: no pallor, no icterus, moist mucous membranes Neck: soft, supple, no jvd, no stridor CVS: normal rate, regular, no murmur Resp: bilateral air entry, no rhales, no wheeze, no rhonchi, no acc muscle use Abdomen: soft, obese, nontender, nondistended, bowel sounds present Ext: pulses+, warm, 2+ LE edema bilaterally Skin: intact Neuro: awake, alert, orientedx3, moving all extremities, no gross focal deficit Labs: Laboratory Results - last 24 hr 01/29/18 01/29/18 01/29/18 11:36 13:45 14:35 WBC RBC Hgb Hct MCV MCH MCHC RDW Plt Count MPV INR (Anticoag Therapy) Sodium 117 L* 115 L* Potassium TNP 4.0 Chloride 84 L 82 L Carbon Dioxide 26 26 Anion Gap 7 7 BUN 13 14 Creatinine 0.48 L 0.47 L Est GFR ( Amer) 207.9 213.0 Est GFR (Non-Af Amer) 171.8 176.1 BUN/Creatinine Ratio 27.1 H 29.8 H Glucose 172 H 213 H POC Glucose (mg/dL) 188 H Calcium 7.9 L 8.3 L Magnesium 01/29/18 01/29/18 01/29/18 16:16 20:25 20:46 WBC RBC Hgb Hct MCV MCH MCHC RDW Plt Count MPV INR (Anticoag Therapy) Sodium 117 L* Potassium 3.8 Chloride 82 L Carbon Dioxide 29 Anion Gap 6 BUN 12 Creatinine 0.62 L Est GFR ( Amer) 154.7 Est GFR (Non-Af Amer) 127.9 BUN/Creatinine Ratio 19.4 Glucose 194 H POC Glucose (mg/dL) 180 H 124 H Calcium 7.9 L Magnesium 01/30/18 01/30/18 01/30/18 05:10 05:10 05:10 WBC 8.6 RBC 4.35 Hgb 12.9 L Hct 39 L MCV 89 MCH 30 MCHC 33 RDW 18 H Plt Count 244 MPV 7.4 INR (Anticoag Therapy) 1.25 H Sodium 118 L* Potassium 3.8 Chloride 84 L Carbon Dioxide 31 Anion Gap 3 BUN 14 Creatinine 0.62 L Est GFR ( Amer) 154.7 Est GFR (Non-Af Amer) 127.9 BUN/Creatinine Ratio 22.6 H Glucose 107 H POC Glucose (mg/dL) Calcium 7.9 L Magnesium 1.9 01/30/18 07:41 WBC RBC Hgb Hct MCV MCH MCHC RDW Plt Count MPV INR (Anticoag Therapy) Sodium Potassium Chloride Carbon Dioxide Anion Gap BUN Creatinine Est GFR ( Amer) Est GFR (Non-Af Amer) BUN/Creatinine Ratio Glucose POC Glucose (mg/dL) 112 H Calcium Magnesium Imaging: CTA chest/abd/pelvis 01/28 no PE; Left upper lobe mass+ (report reviewed) Assessment: 72y M w/pmhx of [facility] Lung Ca stage 2b (s/p radiation, refused chemo, completed tx 5-6m back), Afib on warfarin, AAA s/p stent, past history of [place] ( unclear if stents), DM; has been recently developing shortness of breath and increasing Lower extremity edema as per and patient. He has had left sided chest pain for weeks, initially starting due to a injury. He reported increased pain and was told to come to ER, STEMI alert called and ruled out for suspicion for STEMI. EKG demonstrated LBBB pattern, afib. Found to have severe hyponatremia of 111, with signs of peripheral edema. -Severe Hyponatremia, with evidence of hypervolemia, mild symptoms -Peripheral edema/volume overload -suspected CHF, unspecified type -Chest pain h/o [facility] Lung CA s/p radiation Plan: Neuro- awake/alert. asymptomatic. Delirium prec. Fall prec. CVS- -Chest pain resolved. Trop neg. Musculoskeletal? EKG with afib/LBBB pattern. -Afib, fariha 50s. Rate controlled. discontinued metoprolol, once HR improved, will restart lower dose. -hematuria+, holding lovenox sq, INR subtherapeutic. cont warfarin. -TTE 01/28 with severe LV systolic dysfunction, mod MR, mild RV dysfunction, pulm htn+. [facility] to see if [facility] old and workup performed. He is unclear if he was advised AICD -LE edema+. likely from CHF + increased free water intake and no sodium intake. restrict free water. diuresed well with lasix. Start lasxi 40mg IV daily, additional doses as needed. -Cont asa for old LA? and for AAA stent. Resp- no resp distress, on NC. CTA without PE. Noted FRANCHESCA mass, confirmed from oncologist. s/p radiation. No acute infiltrative process. ID- afebrile. Wbc normal. No acute infectious process. No abx indicated. GI- diabetic/cardiac diet. Fluid restrict for now. GI proph. Renal- -Cr stable. K okay. NO acidosis -Severe hyponatremia, fluctuatinig sodium levels. no symptoms. will continue lasix 40mg IV daily, additional doses as needed. still with peripheral edema. no tolvaptan in hospital at this time. -hematuria started after lovenox sq given, off now -nephrology followup Heme- hg stable. Plt stable. INR subtherap; hold lovenox 2/2 to hematuria. cont warfarin -unclear reason for methotrexate administration. will need to followup. Endo- fingerstick achs; novolog mix to humulin 70/30 33/26 U. Musculsk- pressure ulcer prophylaxis. oob to chair as tolerated Wounds- none Nutrition- cardiac/diabetic diet, fluid restrict DVT prophylaxis: warfarin GI prophylaxis: ppi Central Line: no Arterial Line: no Briseno Cathetor: no Disposition: if Sodium continues to climb transfer to [facility] floor Code Status: full code Mayo Sterling MD Expert Witness (Electronically Signed)
[2018-01-30] MEDS ORDERED: Magnesium Sulfate 2 GM IV* 2 GM/50 ML BAG IVPB ONE (14:00)
[2018-01-30 15:26] LABS: EGFR Non-African American 176.1 (>60)
[2018-01-30] MEDS ORDERED: Furosemide IV* 10 MG/ML 2 ML VIAL (20 MG) IV ONE (20:00)
[2018-01-30] MEDS: amLODIPine TAB* 5 MG PO SCH (22:11)
[2018-01-31 05:41] LABS: Hematocrit 38 % (42-52); Hemoglobin 12.7 g/dl (14.0-18.0); Mean Corpuscular HGB Conc 34 g/dl (31-36); Mean Corpuscular Hemoglobin 30 pg (27-31); Mean Corpuscular Volume 89 fL (80-94); Mean Platelet Volume 7.8 fL (7.4-10.4); Platelet Count 221 10^3/ul (150-450); Red Blood Count 4.26 10^6/ul (4.00-5.40); Red Cell Distribution Width 18 % (10.5-15); White Blood Count 9.4 10^3/ul (3.5-10.8)
[2018-01-31 05:47] LABS: INR 1.28 (0.77-1.02)
[2018-01-31 05:56] LABS: EGFR Non-African American 185.1 (>60)
[2018-01-31] MEDS ORDERED: Dextrose 50% Syringe 50 ML* 25 GM/50 ML SYRINGE ONE (06:40)
[2018-01-31] MEDS: Omeprazole CAP* 20 MG PO SCH (07:40)
[2018-01-31] MEDS ORDERED: Dextrose 50% Syringe 50 ML* 25 GM/50 ML SYRINGE IV PUSH ONE (08:00)
[2018-01-31] MEDS: Furosemide IV* 10 MG/ML VIAL (40 MG) IV SCH (08:56)
[2018-01-31] MEDS: Aspirin EC TAB* 81 MG TAB.EC PO SCH (08:56)
[2018-01-31] MEDS: Folic Acid TAB* 1 MG PO SCH (08:56)
[2018-01-31] MEDS: Atorvastatin* 40 MG TAB PO SCH (08:56)
[2018-01-31] MEDS ORDERED: Insulin ISOPH/REG 70/30 (*) 1 UNITS UNIT SUBCUT ONE (10:39)
[2018-01-31] MEDS ORDERED: Metoprolol Tartrate TAB* 25 MG ONE (10:50)
--- NOTE | 2018-01-31 10:51 | PN ---
Progress Note - Progress Note Date of Service: 01/31/18 Note: Progress Note -- Critical Care 24 hour events: -awake/alert, no complaints -in chair, no resp distress, on NC -making urine, pinkish tinge now, less hematuria noted -hypoglycemia this morning to 68, given d50, was more alert afterward. Tele: afib, HR 60s Vitals: Vital Signs Temp 97.9 F 01/31/18 10:01 Pulse 54 01/31/18 10:01 Resp 15 01/31/18 10:01 BP 119/56 01/31/18 10:01 Pulse Ox 96 01/31/18 10:01 Intake & Output 01/30/18 01/31/18 01/31/18 18:59 06:59 18:59 Intake Total 60 Output Total 1460 1090 950 Balance -1460 -1090 -890 Intake: Oral 60 Output: Ascencio 1460 1090 950 O2/Vent: NC 2L Infusions: heplock Current Medications: Aspirin (Aspirin Ec Tab*) 81 mg PO DAILY [facility] Last Admin: 01/31/18 08:56 Dose: 81 mg Atorvastatin Calcium (Lipitor*) 40 mg PO DAILY [facility] Last Admin: 01/31/18 08:56 Dose: 40 mg Folic Acid (Folvite Tab*) 1 mg PO DAILY [facility] Last Admin: 01/31/18 08:56 Dose: 1 mg Furosemide (Lasix Iv*) 40 mg IV DAILY [facility] Last Admin: 01/31/18 08:56 Dose: 40 mg Furosemide (Lasix Iv*) 20 mg IV Q24H [facility] Insulin Human Isoph/Insulin Regular (Humulin 70/30 (*)) 25 units SUBCUT ONCE ONE Stop: 01/31/18 10:40 Insulin Human Isoph/Insulin Regular (Humulin 70/30 (*)) 25 units SUBCUT 0800 [facility] Insulin Human Isoph/Insulin Regular (Humulin 70/30 (*)) 20 units SUBCUT 1700 [facility] Nystatin (Nystatin Top Powder*) 1 applic TOPICAL BID [facility] Last Admin: 01/30/18 21:30 Dose: 1 applic Omeprazole (Prilosec Cap*) 20 mg PO QAM@0730 [facility] Last Admin: 01/31/18 07:40 Dose: 20 mg Warfarin Sodium (Coumadin Tab(*)) 5 mg PO ONCE@1700 ONE; Protocol Stop: 01/31/18 17:01 Physical Exam: General: awake, alert, no distress, no diaphoresis Head: normocephalic, atraumatic HEENT: no pallor, no icterus, moist mucous membranes Neck: soft, supple, no jvd, no stridor CVS: normal rate, regular, no murmur Resp: bilateral air entry, no rhales, no wheeze, no rhonchi, no acc muscle use Abdomen: soft, obese, nontender, nondistended, bowel sounds present Ext: pulses+, warm, 2+ LE edema bilaterally Skin: intact Neuro: awake, alert, orientedx3, moving all extremities, no gross focal deficit Labs: Laboratory Results - last 24 hr 01/30/18 01/30/18 01/30/18 11:39 14:45 17:24 WBC RBC Hgb Hct MCV MCH MCHC RDW Plt Count MPV INR (Anticoag Therapy) Sodium 119 L* Potassium TNP Chloride 86 L Carbon Dioxide 24 Anion Gap 9 BUN 14 Creatinine 0.47 L Est GFR ( Amer) 213.0 Est GFR (Non-Af Amer) 176.1 BUN/Creatinine Ratio 29.8 H Glucose 185 H POC Glucose (mg/dL) 147 H 164 H Calcium 8.1 L 01/30/18 01/30/18 01/31/18 22:21 22:53 00:17 WBC RBC Hgb Hct MCV MCH MCHC RDW Plt Count MPV INR (Anticoag Therapy) Sodium Potassium Chloride Carbon Dioxide Anion Gap BUN Creatinine Est GFR ( Amer) Est GFR (Non-Af Amer) BUN/Creatinine Ratio Glucose POC Glucose (mg/dL) 77 80 101 H Calcium 01/31/18 01/31/18 01/31/18 05:20 05:20 05:20 WBC 9.4 RBC 4.26 Hgb 12.7 L Hct 38 L MCV 89 MCH 30 MCHC 34 RDW 18 H Plt Count 221 MPV 7.8 INR (Anticoag Therapy) 1.28 H Sodium 123 L Potassium 3.7 Chloride 88 L Carbon Dioxide 31 Anion Gap 4 BUN 13 Creatinine 0.45 L Est GFR ( Amer) 224.0 Est GFR (Non-Af Amer) 185.1 BUN/Creatinine Ratio 28.9 H Glucose 69 L POC Glucose (mg/dL) Calcium 8.0 L 01/31/18 01/31/18 07:05 07:39 WBC RBC Hgb Hct MCV MCH MCHC RDW Plt Count MPV INR (Anticoag Therapy) Sodium Potassium Chloride Carbon Dioxide Anion Gap BUN Creatinine Est GFR ( Amer) Est GFR (Non-Af Amer) BUN/Creatinine Ratio Glucose POC Glucose (mg/dL) 162 H 152 H Calcium Imaging: CTA chest/abd/pelvis 01/28 no PE; Left upper lobe mass+ (report reviewed) Assessment: 72y M w/pmhx of [facility] Lung Ca stage 2b (s/p radiation, refused chemo, completed tx 5-6m back), Afib on warfarin, AAA s/p stent, past history of IL ( unclear if stents), DM; has been recently developing shortness of breath and increasing Lower extremity edema as per and patient. He has had left sided chest pain for weeks, initially starting due to a injury. He reported increased pain and was told to come to ER, STEMI alert called and ruled out for suspicion for STEMI. EKG demonstrated LBBB pattern, afib. Found to have severe hyponatremia of 111, with signs of peripheral edema. -Severe Hyponatremia, with evidence of hypervolemia, mild symptoms -Peripheral edema/volume overload -suspected CHF, unspecified type -Chest pain h/o NSC Lung CA s/p radiation Plan: Neuro- awake/alert. asymptomatic. Delirium prec. Fall prec. CVS- -Chest pain resolved. Trop neg. Musculoskeletal? EKG with afib/LBBB pattern. -Afib, HR 60s now; hold metoprol, restart at lower dose of 25mg XL if HR maintains >60. -hematuria+ improved, hg stable; hold off lovenox. started warfarin 5mg night. -TTE 01/28 with severe LV systolic dysfunction, mod MR, mild RV dysfunction, pulm htn+. Unclear how old this cardiomyopathy is, ICD? -LE edema+. likely from CHF + increased free water intake and no sodium intake. restrict free water. increase lasix to 40mg IV AM and 20mg IV PM. -Cont asa for old IL? and for AAA stent. Resp- no resp distress, on NC. CTA without PE. Noted FRANCHESCA mass, confirmed from oncologist. s/p radiation. No acute infiltrative process. ID- afebrile. Wbc normal. No abx indicated. GI- diabetic/cardiac diet. Fluid restrict for now. GI proph. Renal- -Cr stable. K okay. NO acidosis -Severe hyponatremia, Na to 123, will check Na level tomorrow. Cont IV diuretics. discontinued entresto as possible that ARB may be adding to hyponatremia? cont lasix IV 40mg AM , 20mg IV PM -hematuria better; consider d/c ascencio in next few days -nephrology followup Heme- hg stable. Plt stable. INR subtherap; warfarin 5mg daily start -unclear reason for methotrexate administration. Endo- fingerstick achs; hypoglycemia overnight, unclear why, less carb filled diet? Decrease novolog mix to humulin 70/30 from 33/26 U -> 25/20 and re-eval tomorrow. Musculsk- pressure ulcer prophylaxis. oob to chair as tolerated Wounds- none Nutrition- cardiac/diabetic diet, fluid restrict DVT prophylaxis: warfarin GI prophylaxis: ppi Central Line: no Arterial Line: no Ascencio Cathetor: no Disposition: can transfer to medical floor Code Status: full code Mayo Sterling MD Therapeutic Sales Specialist (Electronically Signed)
[2018-01-31] MEDS: Insulin ISOPH/REG 70/30 (*) 1 UNITS UNIT SUBCUT SCH (10:54)
[2018-01-31] MEDS: Nystatin TOP POWDER* 15 GM BTL TOPICAL SCH ×2 (10:57→20:53)
[2018-01-31] MEDS ORDERED: Potassium Chlor TAB* 20 MEQ TAB.ER PO ONE ×2 (10:59→20:00)
[2018-01-31] MEDS ORDERED: Metoprolol Succinate XL TAB* 25 MG PO SCH (11:00)
--- NOTE | 2018-01-31 11:25 | CONS ---
NEPHROLOGY CONSULTATION REPORT: DATE OF CONSULT: 01/31/18 HISTORY OF PRESENT ILLNESS: Mr. Vila is a 72-year-old gentleman with a history of non-small cell lung cancer stage IIB who is status post radiation having refused chemotherapy. He has a history of an aortic abdominal aneurysm. He has atrial fibrillation. He has a history of previous myocardial infarction. He has diabetes mellitus type 2. He presented to the emergency room because of chest discomfort. A STEMI was ruled out, but it did reveal a left bundle-branch block and he was found to be markedly hyponatremic. Of significance, because of the history of congestive heart failure, he has been restricting his sodium intake aggressively and because of a chronically dry mouth, he consumes a great deal of water. PAST MEDICAL HISTORY: As noted above. His aortic aneurysm has been treated with an endovascular stent. SOCIAL HISTORY: He does not use alcohol. He quit smoking approximately 40 years ago. PHYSICAL EXAM: He is a somewhat obese white gentleman who appeared to me to be quite comfortable. He was eating. Blood pressure of 126/69 with a pulse of 48. He is normocephalic. He is anicteric. His extraocular muscles were intact. His mucous membranes were moist. There was no jugular venous distension that I could see. The chest revealed some rhonchi to the left upper posterior area. The heart revealed a bradycardic rhythm. I did not hear any murmurs. The abdomen was soft and nontender. He had 1 to 2+ edema at the time that I saw him. DIAGNOSTIC STUDIES/LAB DATA: His sodium was 118 with a potassium of 3.5, total CO2 of 30, chloride 83, BUN 10 with a creatinine of 0.56. His serum osmolality was 245 with a urine osmolality of 250. DISCUSSION: I was a little surprised by his urine osmolality. I had anticipated because of his history of lung cancer that he would have an ADH positive mechanism. This will be magnified by his congestive heart failure, but since his urine and serum osmolality were almost identical, this suggested that this was really a matter of decreased sodium intake with an increased water intake. As a result, I recommended to Dr. Sterling that we significantly reduce his water intake. Drugs like demeclocycline would be ineffective at this time. The vaptans could be used. Often times, drugs like Tolvaptan produce such a severe thirst that people drink their way out of the benefit. I recommended that he be given tart sugar-free candies to suck on so that he can produce his own watery saliva to help out with the dry mouth and perhaps even one of the artificial salivas could be used. I did discuss the case with Dr. Sterling. [id number]/[facility] #: [id number] MTDD
[2018-01-31] MEDS ORDERED: Insulin ISOPH/REG 70/30 (*) 1 UNITS UNIT SUBCUT SCH (17:00)
[2018-01-31] MEDS ORDERED: Warfarin TAB(*) 5 MG PO ONE (17:00)
[2018-01-31] MEDS: Furosemide IV* 10 MG/ML 2 ML VIAL (20 MG) IV SCH (20:52)
[2018-02-01] MEDS: Omeprazole CAP* 20 MG PO SCH (05:41)
[2018-02-01 06:38] LABS: Hematocrit 40 % (42-52); Hemoglobin 13.5 g/dl (14.0-18.0); Mean Corpuscular HGB Conc 34 g/dl (31-36); Mean Corpuscular Hemoglobin 30 pg (27-31); Mean Corpuscular Volume 89 fL (80-94); Mean Platelet Volume 8.2 fL (7.4-10.4); Platelet Count 201 10^3/ul (150-450); Red Blood Count 4.49 10^6/ul (4.00-5.40); Red Cell Distribution Width 18 % (10.5-15); White Blood Count 10.9 10^3/ul (3.5-10.8)
[2018-02-01 06:52] LABS: INR 1.25 (0.77-1.02)
[2018-02-01 06:57] LABS: EGFR Non-African American 176.1 (>60)
[2018-02-01] MEDS: Insulin ISOPH/REG 70/30 (*) 1 UNITS UNIT SUBCUT SCH ×2 (10:28→17:50)
[2018-02-01] MEDS: Furosemide IV* 10 MG/ML VIAL (40 MG) IV SCH (10:33)
[2018-02-01] MEDS: Nystatin TOP POWDER* 15 GM BTL TOPICAL SCH ×2 (10:33→20:23)
[2018-02-01] MEDS: Folic Acid TAB* 1 MG PO SCH (10:34)
[2018-02-01] MEDS: Aspirin EC TAB* 81 MG TAB.EC PO SCH (10:34)
[2018-02-01] MEDS: Atorvastatin* 40 MG TAB PO SCH (10:34)
--- NOTE | 2018-02-01 11:03 | PN ---
Subjective Date of Service: 02/01/18 Interval History: Patient was hypoglycemic this morning at 72, but asymptomatic. MD was notified and insulin held. Resting in recliner on assessment Reports he feels well. Patient complying with water restriction. Report pain in left shoulder which has been present for several months and he has seen his pcp for pain. Reports pain increase with reaching activities. Pain reproducible. Rates pain at "3" out of 10. Tylenol ordered. Denies cp, sob, palpitations, n/v/d, headache, dizziness. Objective Active Medications: Aspirin (Aspirin Ec Tab*) 81 mg PO DAILY [facility] Last Admin: 02/01/18 10:34 Dose: 81 mg Atorvastatin Calcium (Lipitor*) 40 mg PO DAILY [facility] Last Admin: 02/01/18 10:34 Dose: 40 mg Folic Acid (Folvite Tab*) 1 mg PO DAILY [facility] Last Admin: 02/01/18 10:34 Dose: 1 mg Furosemide (Lasix Iv*) 40 mg IV DAILY [facility] Last Admin: 02/01/18 10:33 Dose: 40 mg Furosemide (Lasix Iv*) 20 mg IV Q24H [facility] Last Admin: 01/31/18 20:52 Dose: 20 mg Insulin Human Isoph/Insulin Regular (Humulin 70/30 (*)) 25 units SUBCUT 0800 [facility] Last Admin: 02/01/18 10:28 Dose: Not Given Insulin Human Isoph/Insulin Regular (Humulin 70/30 (*)) 20 units SUBCUT 1700 [facility] Last Admin: 01/31/18 17:29 Dose: 20 units Nystatin (Nystatin Top Powder*) 1 applic TOPICAL BID [facility] Last Admin: 02/01/18 10:33 Dose: 1 applic Omeprazole (Prilosec Cap*) 20 mg PO QAM@0730 [facility] Last Admin: 02/01/18 05:41 Dose: 20 mg Pharmacy Profile Note (Coumadin Daily Reminder*) 1 note FOLLOW UP 1700 [facility] Vital Signs - 8 hr 02/01/18 02/01/18 03:18 07:18 Temperature 98.4 F 98.1 F Pulse Rate 53 60 Respiratory 18 20 Rate Blood Pressure 128/48 127/61 (mmHg) O2 Sat by Pulse 93 98 Oximetry Oxygen Devices in Use Now: None Appearance: Comfortable, cooperative. Eyes: No Scleral Icterus Ears/Nose/Mouth/Throat: Clear Oropharnyx, Mucous Membranes Moist Neck: NL Appearance and Movements; NL JVP Respiratory: Symmetrical Chest Expansion and Respiratory Effort, Clear to Auscultation Cardiovascular: NL Sounds; No Murmurs; No JVD, RRR, - - Bilateral +2 pitting edema. Abdominal: NL Sounds; No Tenderness; No Distention Extremities: No Clubbing, Cyanosis Skin: No Rash or Ulcers Neurological: Alert and Oriented x 3 Nutrition: Taking PO's Result Diagrams: 02/01/18 05:40 02/01/18 05:40 Additional Lab and Data: Laboratory Results - last 24 hr 01/31/18 02/01/18 02/01/18 19:45 05:40 05:40 WBC 10.9 H RBC 4.49 Hgb 13.5 L Hct 40 L MCV 89 MCH 30 MCHC 34 RDW 18 H Plt Count 201 MPV 8.2 INR (Anticoag Therapy) 1.25 H Sodium Potassium Chloride Carbon Dioxide Anion Gap BUN Creatinine Est GFR ( Amer) Est GFR (Non-Af Amer) BUN/Creatinine Ratio Glucose POC Glucose (mg/dL) 154 H Calcium 02/01/18 02/01/18 02/01/18 05:40 07:44 11:28 WBC RBC Hgb Hct MCV MCH MCHC RDW Plt Count MPV INR (Anticoag Therapy) Sodium 126 L Potassium 4.3 Chloride 91 L Carbon Dioxide 27 Anion Gap 8 BUN 10 Creatinine 0.47 L Est GFR ( Amer) 213.0 Est GFR (Non-Af Amer) 176.1 BUN/Creatinine Ratio 21.3 H Glucose 62 L POC Glucose (mg/dL) 71 296 H Calcium 8.6 Microbiology and Other Data: Microbiology 01/28/18 16:30 Nasal Screen MRSA (PCR) - Final Nasal Mrsa Not Detected Assess/Plan/Problems-Billing Assessment: 72y M pmhx of NSC Lung Ca stage 2b (s/p radiation) Afib on warfarin, AAA s/p stent, past history of AK, DM; presented to the Ed with shortness of breath and increasing lower extremity edema. He also reported left sided chest pain for weeks, but pain increased which lead him to ED, STEMI alert called and ruled out for suspicion for STEMI. EKG demonstrated LBBB pattern, afib. Found to have severe hyponatremia of 111. Was in ICU now on 4th and sodium 126. Hospital stay has been completed by occasional hypoglycemia. - Patient Problems (1) Hyponatremia Comment: - Na 123 yesterday and 126 today - Cont reduced water intake - Monitor Na (2) Chest pain Comment: - Resolved (3) Edema Comment: - Multifactorial due to Na and CHF. - Records revealed left Ventricular systolic dysfunction, Cardiomyopathy, Heart Failure, and CAD - [facility] - Cont Lasix (4) Hematuria Comment: - Improving as urine is pink tinged today - Cont Coumadin per pharmacy protocol - Cont to monitor (5) Afib Comment: - Metoprol on hold due to bradycardia - Restart at lower dose of 25 mg XL in maintain HR > 60 bpm (6) CHF (congestive heart failure) Comment: - As above under edema. - Awaiting echo and cardiology records from [place] (7) Diabetes mellitus Comment: - Humilin 70/30 decreased yesterday from 33/26 units to 25/20 due to hypoglycemia overnight the night before. - Hypoglycemia again this morning at 71 - Evening dose reduced from 20 units to 15 units - Patient currenty hyperglycemic - Dr Matthews called and will be seeing patient. We appreciate his consult. - 0300 glucose ordered for tomorrow morning. Nursing notified. - Continue to monitor (8) Non-small cell lung cancer (NSCLC) Comment: - S/P radiation (9) S/P AAA repair Comment: - S/P repair with stent Status and Disposition: D/C home when medically stable. Attending: Lana Pace
--- NOTE | 2018-02-01 17:25 | CONSULT ---
Consult Consult: [facility] Inpatient Consult Note Date of Consult: 02/01/18 Reason for Consult: diabetes with hyponatremia Reason for Admission: hyponatremia ASSESSMENT: 72 yo M with hypotonic hyponatremia and diabetes, now with hypoglycemia on home doses of insulin 70/30. His insulin requirement at home is approximately 60 units/day = 0.5 units/kg/day, but this dose caused overnight hypoglycemia each of the past 2 days of this admission. He received only 45 units total yesterday = 0.3 units/kg/day, but even this dose caused hypoglycemia. One possibility is that he is receiving too much insulin with his evening meal, which should be no more than 50% of the insulin dose given with the morning meal. Another possibility is occult adrenal insufficiency, which may cause both SIADH and hypoglycemia. PLAN: - check AM cortisol (order placed) - check 3AM blood glucose tonight - change insulin 70/30 to 30 units QAM, 15 units QPM with first and last meal of the day - continue fluid restriction for presumed SIADH - consider tolvaptan for SIADH if Na<130 in 2-3 days SUBJECTIVE: History of Present Illness: 72 yo M with NSCLC, AAA, AF, CAD and T2DM, presenting through ED with symptoms of chest pain. He was markedly hyponatremic upon presentation with history consistent with excess water intake. Past Medical History: 1. NSCLC s/p XRT, no chemo 2. AAA 3. Atrial Fibrillation 4. Prior CAD 5. T2DM x20 years, on insulin x15 years Medications Prior to Admission: Acetaminophen [Acetaminophen Extra Strength] 500 mg PO Q4HR PRN 01/28/18 [ History Confirmed 01/28/18] Aspirin EC TAB* [Ecotrin EC Low Dose 81 MG*] 81 mg PO DAILY 01/28/18 [History Confirmed 01/28/18] Atorvastatin* [Lipitor*] 40 mg PO DAILY 01/28/18 [History Confirmed 01/28/18] Folic Acid TAB* [Folvite TAB*] 1 mg PO DAILY 01/28/18 [History Confirmed ] Insulin Aspart Prot/Insuln Asp [Novolog Mix 70-30 Flexpen Syrn] 26 units SUBCUT QPM 01/28/18 [History Confirmed 01/28/18] Insulin Aspart Prot/Insuln Asp [Novolog Mix 70-30 Flexpen Syrn] 33 units SUBCUT QAM 01/28/18 [History Confirmed 01/28/18] LoraTADine TAB(NF) [Claritin 10 MG TAB(NF)] 10 mg PO DAILY PRN 01/28/18 [ History Confirmed 01/28/18] Methotrexate TAB* 20 mg PO WEEKLY 01/28/18 [History Confirmed 01/28/18] Metoprolol Succinate XL TAB* [Toprol XL TAB*] 200 mg PO DAILY 01/28/18 [History Confirmed 01/28/18] Multivitamins/Minerals TAB* [Theragran/minerals TAB*] 1 tab PO DAILY 01/28/18 [ History Confirmed 01/28/18] Omeprazole CAP* [Prilosec CAP* 20 MG] 20 mg PO QAM 01/28/18 [History Confirmed 01/28/18] Sacubitril/Valsartan (NF) [Entresto (NF)] 1 tab PO BID 01/28/18 [ History Confirmed 01/28/18] Salsalate TAB* [Disalcid*] 500 mg PO TID PRN 01/28/18 [History Confirmed ] Warfarin TAB(*) [Coumadin TAB(*)] 5 mg PO BEDTIME 01/28/18 [History Confirmed ] amLODIPine TAB* [Norvasc 5 mg TAB*] 5 mg PO DAILY 01/28/18 [History Confirmed ] Inpatient Medications: Acetaminophen (Tylenol Tab*) 650 mg PO Q6H PRN PRN Reason: PAIN Aspirin (Aspirin Ec Tab*) 81 mg PO DAILY [facility] Last Admin: 02/01/18 10:34 Dose: 81 mg Atorvastatin Calcium (Lipitor*) 40 mg PO DAILY [facility] Last Admin: 02/01/18 10:34 Dose: 40 mg Folic Acid (Folvite Tab*) 1 mg PO DAILY [facility] Last Admin: 02/01/18 10:34 Dose: 1 mg Furosemide (Lasix Iv*) 40 mg IV DAILY [facility] Last Admin: 02/01/18 10:33 Dose: 40 mg Furosemide (Lasix Iv*) 20 mg IV Q24H [facility] Last Admin: 01/31/18 20:52 Dose: 20 mg Insulin Human Isoph/Insulin Regular (Humulin 70/30 (*)) 25 units SUBCUT 0800 [facility] Last Admin: 02/01/18 10:28 Dose: Not Given Insulin Human Isoph/Insulin Regular (Humulin 70/30 (*)) 15 units SUBCUT 1700 [facility] Nystatin (Nystatin Top Powder*) 1 applic TOPICAL BID [facility] Last Admin: 02/01/18 10:33 Dose: 1 applic Omeprazole (Prilosec Cap*) 20 mg PO QAM@0730 [facility] Last Admin: 02/01/18 05:41 Dose: 20 mg Pharmacy Profile Note (Coumadin Per Pharmacy*) 1 note FOLLOW UP 1700 [facility] Allergies/Intolerances: MSO4 Social History: Lives with of 15 years. Disabled [place]. Former smoker, denies alcohol. Family History: Non-contributory. Review of Systems: As above. OBJECTIVE: Temp Pulse Resp BP Pulse Ox 97.8 F 65 18 124/54 96 02/01/18 15:50 02/01/18 15:50 02/01/18 15:50 02/01/18 15:50 02/01/18 15:50 General: alert, pleasant, oriented, no distress ENT: neck supple, no thyromegaly, no bruit is heard Chest: CTAB, no wheezing or crackles CV: irregular, no murmur Abdomen: soft, non-tender Extremities: (++) edema, distal pulses intact Skin: warm, dry, no rash Neuro: grossly intact motor/sensory in extremities Psych: restricted affect, pleasant Labs: Glucose Results 01/30/18 21:00 77 01/31/18 11:30 287 02/01/18 07:30 71 02/01/18 11:30 296 02/01/18 16:30 242 WBC 10.9 10^3/ul (3.5-10.8) H 02/01/18 05:40 RBC 4.49 10^6/ul (4.00-5.40) 02/01/18 05:40 Hgb 13.5 g/dl (14.0-18.0) L 02/01/18 05:40 Hct 40 % (42-52) L 02/01/18 05:40 MCV 89 fL (80-94) 02/01/18 05:40 MCH 30 pg (27-31) 02/01/18 05:40 MCHC 34 g/dl (31-36) 02/01/18 05:40 RDW 18 % (10.5-15) H 02/01/18 05:40 Plt Count 201 10^3/ul (150-450) 02/01/18 05:40 MPV 8.2 fL (7.4-10.4) 02/01/18 05:40 Neut % (Auto) 81.2 % 01/28/18 12:04 Lymph % (Auto) 5.9 % 01/28/18 12:04 [place] % (Auto) 12.4 % 01/28/18 12:04 Eos % (Auto) 0.1 % 01/28/18 12:04 Baso % (Auto) 0.4 % 01/28/18 12:04 Absolute Neuts (auto) 7.5 10^3/ul (1.5-7.7) 01/28/18 12:04 Absolute Lymphs (auto) 0.5 10^3/ul (1.0-4.8) L 01/28/18 12:04 Absolute Monos (auto) 1.1 10^3/ul (0-0.8) H 01/28/18 12:04 Absolute Eos (auto) 0 10^3/ul (0-0.6) 01/28/18 12:04 Absolute Basos (auto) 0 10^3/ul (0-0.2) 01/28/18 12:04 Absolute Nucleated RBC 0 10^3/ul 01/28/18 12:04 Nucleated RBC % 0.2 01/28/18 12:04 INR (Anticoag Therapy) 1.25 (0.77-1.02) H 02/01/18 05:40 APTT 31.8 seconds (26.0-36.3) 01/28/18 12:04 D-Dimer, Quantitative 294 ng/mL (Less Than 230) H 01/28/18 12:04 Sodium 126 mmol/L (135-145) L 02/01/18 05:40 Potassium 4.3 mmol/L (3.5-5.0) 02/01/18 05:40 Chloride 91 mmol/L (101-111) L 02/01/18 05:40 Carbon Dioxide 27 mmol/L (22-32) 02/01/18 05:40 Anion Gap 8 mmol/L (2-11) 02/01/18 05:40 BUN 10 mg/dL (6-24) 02/01/18 05:40 Creatinine 0.47 mg/dL (0.67-1.17) L 02/01/18 05:40 Est GFR ( Amer) 213.0 (>60) 02/01/18 05:40 Est GFR (Non-Af Amer) 176.1 (>60) 02/01/18 05:40 BUN/Creatinine Ratio 21.3 (8-20) H 02/01/18 05:40 Glucose 62 mg/dL (70-100) L 02/01/18 05:40 POC Glucose (mg/dL) 296 mg/dL (70-100) H 02/01/18 11:28 Hemoglobin A1c 8.3 % (4.0-5.6) H 01/29/18 04:11 Serum Osmolality 245 mOsm/kg (275-295) L 01/28/18 12:04 Lactic Acid 1.4 mmol/L (0.5-2.0) 01/28/18 12:04 Calcium 8.6 mg/dL (8.6-10.3) 02/01/18 05:40 Magnesium 1.9 mg/dL (1.9-2.7) 01/30/18 05:10 Total Bilirubin 1.30 mg/dL (0.2-1.0) H 01/28/18 12:04 AST 18 U/L (13-39) 01/28/18 12:04 ALT 23 U/L (7-52) 01/28/18 12:04 Alkaline Phosphatase 67 U/L (34-104) 01/28/18 12:04 Total Creatine Kinase 36 U/L (10-223) 01/28/18 12:04 CK-MB (CK-2) 2.6 ng/mL (0.6-6.3) 01/28/18 12:04 Troponin I 0.01 ng/mL (<0.04) 01/28/18 20:20 B-Natriuretic Peptide 1709 pg/mL (<=100) H 01/28/18 12:04 Total Protein 6.2 g/dL (6.4-8.9) L 01/28/18 12:04 Albumin 3.4 g/dL (3.2-5.2) 01/28/18 12:04 Globulin 2.8 g/dL (2-4) 01/28/18 12:04 Albumin/Globulin Ratio 1.2 (1-3) 01/28/18 12:04 Procalcitonin < 0.1 ng/mL (<0.6) 01/28/18 12:04 TSH 0.90 mcIU/mL (0.34-5.60) 01/28/18 12:04 Thyroxine (T4) 9.84 g/dL (6.09-12.23) 01/28/18 12:04 Urine Osmolality 250 mOsm/kg (100-1150) 01/28/18 16:30 U Sodium Concentration 67 mmol/L 01/28/18 16:30
[2018-02-01] MEDS ORDERED: Warfarin TAB(*) 5 MG PO ONE (18:00)
[2018-02-01] MEDS: Furosemide IV* 10 MG/ML 2 ML VIAL (20 MG) IV SCH (20:21)
[2018-02-02] MEDS: Omeprazole CAP* 20 MG PO SCH (05:33)
[2018-02-02 05:46] LABS: Hematocrit 40 % (42-52); Hemoglobin 13.1 g/dl (14.0-18.0); Mean Corpuscular HGB Conc 33 g/dl (31-36); Mean Corpuscular Hemoglobin 29 pg (27-31); Mean Corpuscular Volume 89 fL (80-94); Mean Platelet Volume 7.9 fL (7.4-10.4); Platelet Count 188 10^3/ul (150-450); Red Blood Count 4.53 10^6/ul (4.00-5.40); Red Cell Distribution Width 18 % (10.5-15)
[2018-02-02 06:05] LABS: INR 1.35 (0.77-1.02)
[2018-02-02 06:57] LABS: EGFR Non-African American 171.8 (>60)
[2018-02-02] MEDS: Insulin ISOPH/REG 70/30 (*) 1 UNITS UNIT SUBCUT SCH ×2 (08:43→17:27)
[2018-02-02] MEDS: Atorvastatin* 40 MG TAB PO SCH (08:45)
[2018-02-02] MEDS: Aspirin EC TAB* 81 MG TAB.EC PO SCH (08:45)
[2018-02-02] MEDS: Folic Acid TAB* 1 MG PO SCH (08:46)
[2018-02-02] MEDS: Furosemide IV* 10 MG/ML VIAL (40 MG) IV SCH (08:47)
[2018-02-02] MEDS: Nystatin TOP POWDER* 15 GM BTL TOPICAL SCH ×2 (08:50→20:14)
--- NOTE | 2018-02-02 12:50 | PN ---
Subjective Date of Service: 02/02/18 Interval History: Resting in recliner on assessment. No complaints Reports he feels improved. 12 point ROS completed and all negative. Objective Active Medications: Acetaminophen (Tylenol Tab*) 650 mg PO Q6H PRN PRN Reason: PAIN Aspirin (Aspirin Ec Tab*) 81 mg PO DAILY [facility] Last Admin: 02/02/18 08:45 Dose: 81 mg Atorvastatin Calcium (Lipitor*) 40 mg PO DAILY [facility] Last Admin: 02/02/18 08:45 Dose: 40 mg Folic Acid (Folvite Tab*) 1 mg PO DAILY [facility] Last Admin: 02/02/18 08:46 Dose: 1 mg Furosemide (Lasix Iv*) 40 mg IV DAILY [facility] Last Admin: 02/02/18 08:47 Dose: 40 mg Furosemide (Lasix Iv*) 20 mg IV Q24H [facility] Last Admin: 02/01/18 20:21 Dose: 20 mg Insulin Human Isoph/Insulin Regular (Humulin 70/30 (*)) 25 units SUBCUT 0800 [facility] Last Admin: 02/02/18 08:43 Dose: 25 units Insulin Human Isoph/Insulin Regular (Humulin 70/30 (*)) 15 units SUBCUT 1700 [facility] Last Admin: 02/01/18 17:50 Dose: 15 units Metoprolol Succinate (Toprol Xl Tab*) 25 mg PO DAILY [facility] Nystatin (Nystatin Top Powder*) 1 applic TOPICAL BID [facility] Last Admin: 02/02/18 08:50 Dose: 1 applic Omeprazole (Prilosec Cap*) 20 mg PO QAM@0730 [facility] Last Admin: 02/02/18 05:33 Dose: 20 mg Pharmacy Profile Note (Coumadin Per Pharmacy*) 1 note FOLLOW UP 1700 [facility] Warfarin Sodium (Coumadin Tab(*)) 5 mg PO ONCE ONE Stop: 02/02/18 17:01 Vital Signs - 8 hr 02/02/18 02/02/18 02/02/18 08:00 08:34 11:22 Temperature 98.3 F 97.5 F Pulse Rate 102 89 Respiratory 18 18 20 Rate Blood Pressure 136/77 124/53 (mmHg) O2 Sat by Pulse 95 96 Oximetry Oxygen Devices in Use Now: None Appearance: Comfortable, NAD Eyes: No Scleral Icterus Ears/Nose/Mouth/Throat: Clear Oropharnyx, Mucous Membranes Moist Neck: NL Appearance and Movements; NL JVP Respiratory: Symmetrical Chest Expansion and Respiratory Effort, Clear to Auscultation Cardiovascular: - - S1, S2 present. Irregular. +2 edema bilateral LE Abdominal: NL Sounds; No Tenderness; No Distention Lymphatic: No Cervical Adenopathy Extremities: No Clubbing, Cyanosis Skin: No Rash or Ulcers Neurological: Alert and Oriented x 3 Nutrition: Taking PO's Result Diagrams: 02/02/18 05:29 02/02/18 05:29 Additional Lab and Data: Laboratory Results - last 24 hr 02/01/18 02/01/18 02/02/18 17:05 22:29 04:02 WBC RBC Hgb Hct MCV MCH MCHC RDW Plt Count MPV INR (Anticoag Therapy) Sodium Potassium Chloride Carbon Dioxide Anion Gap BUN Creatinine Est GFR ( Amer) Est GFR (Non-Af Amer) BUN/Creatinine Ratio Glucose 191 H POC Glucose (mg/dL) 242 H 290 H Calcium Cortisol 02/02/18 02/02/18 02/02/18 05:29 05:29 05:29 WBC 10.0 RBC 4.53 Hgb 13.1 L Hct 40 L MCV 89 MCH 29 MCHC 33 RDW 18 H Plt Count 188 MPV 7.9 INR (Anticoag Therapy) 1.35 H Sodium 126 L Potassium 4.0 Chloride 91 L Carbon Dioxide 27 Anion Gap 8 BUN 8 Creatinine 0.48 L Est GFR ( Amer) 207.9 Est GFR (Non-Af Amer) 171.8 BUN/Creatinine Ratio 16.7 Glucose 182 H POC Glucose (mg/dL) Calcium 8.6 Cortisol 12.38 02/02/18 02/02/18 07:23 11:47 WBC RBC Hgb Hct MCV MCH MCHC RDW Plt Count MPV INR (Anticoag Therapy) Sodium Potassium Chloride Carbon Dioxide Anion Gap BUN Creatinine Est GFR ( Amer) Est GFR (Non-Af Amer) BUN/Creatinine Ratio Glucose POC Glucose (mg/dL) 205 H 325 H Calcium Cortisol Microbiology and Other Data: Microbiology 01/28/18 16:30 Nasal Screen MRSA (PCR) - Final Nasal Mrsa Not Detected Assess/Plan/Problems-Billing Assessment: 72y M pmhx of NSC Lung Ca stage 2b (s/p radiation) Afib on warfarin, AAA s/p stent, past history of [place], [place]; presented to the Ed with shortness of breath and increasing lower extremity edema. He also reported left sided chest pain for weeks, but pain increased which lead him to ED, STEMI alert called and ruled out for suspicion for STEMI. EKG demonstrated LBBB pattern, afib. Found to have severe hyponatremia of 111. Was in ICU now on 4th and sodium 126. Hospital stay has been completed by occasional hypoglycemia. - Patient Problems (1) Hyponatremia Comment: - Na 126 and again today - Cont reduced water intake - Monitor Na - Dr Matthews consulted and we appreciate his input. - Further evaluation for SIADH (2) Chest pain Comment: - Resolved (3) Edema Comment: - Multifactorial due to Na and CHF. - Records revealed left Ventricular systolic dysfunction, Cardiomyopathy, Heart Failure, and CAD - [facility]ed [facility] - Cont Lasix (4) Hematuria Comment: - Urine slightly darker pink than previously - Cont Coumadin per pharmacy protocol - Cont to monitor - UA ordered - I suspected hematuria is due to trauma of ascencio insertion than subsequent anticoagulation as per reports it occured after Lovenox was started. (5) Afib Comment: - Restarted on Metoprol Succ 25 mg XL today as patient has maintained HR > 60 bpm. - Usual home dose is 200 mg daily (6) CHF (congestive heart failure) Comment: - As above under edema. - Awaiting echo and cardiology records from [place] (7) Diabetes mellitus Comment: - Evening dose reduced from 20 units to 15 units and morning dose increased to 30 units as recommended - No hypoglycemia this morning - Patient currenty hyperglycemic - Dr Matthews consulting. We appreciate his consult. (8) Non-small cell lung cancer (NSCLC) Comment: - S/P radiation (9) S/P AAA repair Comment: - S/P repair with stent Status and Disposition: D/C home when medically stable. Attending: Lana Pace
[2018-02-02] MEDS: Metoprolol Succinate XL TAB* 25 MG PO SCH (12:59)
[2018-02-02] MEDS ORDERED: Warfarin TAB(*) 5 MG PO ONE (17:00)
[2018-02-02] MEDS: Furosemide IV* 10 MG/ML 2 ML VIAL (20 MG) IV SCH (20:11)
[2018-02-02] MEDS: Acetaminophen TAB* 325 MG PO PRN (20:38)
[2018-02-03 06:16] LABS: Hematocrit 40 % (42-52); Mean Corpuscular HGB Conc 33 g/dl (31-36); Mean Corpuscular Hemoglobin 30 pg (27-31); Mean Corpuscular Volume 89 fL (80-94); Mean Platelet Volume 7.8 fL (7.4-10.4); Platelet Count 185 10^3/ul (150-450); Red Blood Count 4.43 10^6/ul (4.00-5.40); Red Cell Distribution Width 18 % (10.5-15); White Blood Count 9.5 10^3/ul (3.5-10.8)
[2018-02-03 06:25] LABS: INR 1.42 (0.77-1.02)
[2018-02-03 06:32] LABS: EGFR Non-African American 153.3 (>60)
[2018-02-03] MEDS: Insulin ISOPH/REG 70/30 (*) 1 UNITS UNIT SUBCUT SCH ×2 (08:51→17:17)
[2018-02-03] MEDS: Atorvastatin* 40 MG TAB PO SCH (08:52)
[2018-02-03] MEDS: Folic Acid TAB* 1 MG PO SCH (08:52)
[2018-02-03] MEDS: Aspirin EC TAB* 81 MG TAB.EC PO SCH (08:52)
[2018-02-03] MEDS: Metoprolol Succinate XL TAB* 25 MG PO SCH (08:53)
[2018-02-03] MEDS: Furosemide IV* 10 MG/ML VIAL (40 MG) IV SCH (08:54)
[2018-02-03] MEDS: Nystatin TOP POWDER* 15 GM BTL TOPICAL SCH ×2 (09:06→21:22)
[2018-02-03] MEDS: Omeprazole CAP* 20 MG PO SCH (09:16)
[2018-02-03] MEDS ORDERED: Warfarin TAB(*) 6 MG PO ONE (17:00)
[2018-02-03] MEDS: Acetaminophen TAB* 325 MG PO PRN (17:20)
--- NOTE | 2018-02-03 19:52 | PN ---
Subjective Date of Service: 02/03/18 Interval History: Patient seen, sitting at the side of bed tolerating food well. denies any concerns. anxious to go home Family History: Unchanged from Admission Social History: Unchanged from Admission Objective Active Medications: Acetaminophen (Tylenol Tab*) 650 mg PO Q6H PRN PRN Reason: PAIN Last Admin: 02/03/18 17:20 Dose: 650 mg Aspirin (Aspirin Ec Tab*) 81 mg PO DAILY [facility] Last Admin: 02/03/18 08:52 Dose: 81 mg Atorvastatin Calcium (Lipitor*) 40 mg PO DAILY [facility] Last Admin: 02/03/18 08:52 Dose: 40 mg Folic Acid (Folvite Tab*) 1 mg PO DAILY [facility] Last Admin: 02/03/18 08:52 Dose: 1 mg Furosemide (Lasix Iv*) 40 mg IV DAILY [facility] Last Admin: 02/03/18 08:54 Dose: 40 mg Furosemide (Lasix Iv*) 20 mg IV Q24H [facility] Last Admin: 02/02/18 20:11 Dose: 20 mg Insulin Human Isoph/Insulin Regular (Humulin 70/30 (*)) 15 units SUBCUT 1700 [facility] Last Admin: 02/03/18 17:17 Dose: 15 units Insulin Human Isoph/Insulin Regular (Humulin 70/30 (*)) 30 units SUBCUT 0800 [facility] Last Admin: 02/03/18 08:51 Dose: 30 units Metoprolol Succinate (Toprol Xl Tab*) 25 mg PO DAILY [facility] Last Admin: 02/03/18 08:53 Dose: 25 mg Nystatin (Nystatin Top Powder*) 1 applic TOPICAL BID [facility] Last Admin: 02/03/18 09:06 Dose: 1 applic Omeprazole (Prilosec Cap*) 20 mg PO QAM@0730 [facility] Last Admin: 02/03/18 09:16 Dose: Not Given Pharmacy Profile Note (Coumadin Per Pharmacy*) 1 note FOLLOW UP 1700 [facility] Last Admin: 02/03/18 17:17 Dose: 1 note Vital Signs - 8 hr 02/03/18 14:58 Temperature 98.0 F Pulse Rate 66 Respiratory 20 Rate Blood Pressure 112/48 (mmHg) O2 Sat by Pulse 96 Oximetry Oxygen Devices in Use Now: None Appearance: awake, alert Eyes: No Scleral Icterus, PERRLA Ears/Nose/Mouth/Throat: NL Teeth, Lips, Gums, Mucous Membranes Moist Neck: NL Appearance and Movements; NL JVP, Trachea Midline Respiratory: Symmetrical Chest Expansion and Respiratory Effort, Clear to Auscultation Cardiovascular: NL Sounds; No Murmurs; No JVD, - - irregularly irregular Abdominal: NL Sounds; No Tenderness; No Distention Neurological: Alert and Oriented x 3 Result Diagrams: 02/03/18 05:54 02/03/18 05:54 Additional Lab and Data: Laboratory Results - last 24 hr 02/01/18 02/01/18 02/02/18 17:05 22:29 04:02 WBC RBC Hgb Hct MCV MCH MCHC RDW Plt Count MPV INR (Anticoag Therapy) Sodium Potassium Chloride Carbon Dioxide Anion Gap BUN Creatinine Est GFR ( Amer) Est GFR (Non-Af Amer) BUN/Creatinine Ratio Glucose 191 H POC Glucose (mg/dL) 242 H 290 H Calcium Cortisol 02/02/18 02/02/18 02/02/18 05:29 05:29 05:29 WBC 10.0 RBC 4.53 Hgb 13.1 L Hct 40 L MCV 89 MCH 29 MCHC 33 RDW 18 H Plt Count 188 MPV 7.9 INR (Anticoag Therapy) 1.35 H Sodium 126 L Potassium 4.0 Chloride 91 L Carbon Dioxide 27 Anion Gap 8 BUN 8 Creatinine 0.48 L Est GFR ( Amer) 207.9 Est GFR (Non-Af Amer) 171.8 BUN/Creatinine Ratio 16.7 Glucose 182 H POC Glucose (mg/dL) Calcium 8.6 Cortisol 12.38 02/02/18 02/02/18 07:23 11:47 WBC RBC Hgb Hct MCV MCH MCHC RDW Plt Count MPV INR (Anticoag Therapy) Sodium Potassium Chloride Carbon Dioxide Anion Gap BUN Creatinine Est GFR ( Amer) Est GFR (Non-Af Amer) BUN/Creatinine Ratio Glucose POC Glucose (mg/dL) 205 H 325 H Calcium Cortisol Microbiology and Other Data: Microbiology 01/28/18 16:30 Nasal Screen MRSA (PCR) - Final Nasal Mrsa Not Detected Assess/Plan/Problems-Billing Assessment: 72y M pmhx of 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 He also reported left sided chest pain for weeks, but pain increased which lead him to ED, STEMI alert called and ruled out for suspicion for STEMI. EKG demonstrated LBBB pattern, afib. Found to have severe hyponatremia of 111. Was in ICU now on 4th and sodium 126. Hospital stay has been completed by occasional hypoglycemia. - Patient Problems (1) Afib Current Visit: Yes Status: Acute Code(s): I48.91 - UNSPECIFIED ATRIAL FIBRILLATION SNOMED Code(s): 07933550 Comment: - Restarted on Metoprol Succ 25 mg XL today as patient has maintained HR > 60 bpm. - Usual home dose is 200 mg daily (2) CHF (congestive heart failure) Current Visit: Yes Status: Acute Code(s): I50.9 - HEART FAILURE, UNSPECIFIED SNOMED Code(s): 92473827 Comment: - As above under edema. - Awaiting echo and cardiology records from [place] (3) Diabetes mellitus Current Visit: Yes Status: Acute Code(s): E11.9 - TYPE 2 DIABETES MELLITUS WITHOUT COMPLICATIONS SNOMED Code(s): 59405324 Comment: - Evening dose reduced from 20 units to 15 units and morning dose increased to 30 units as recommended - No hypoglycemia this morning - Patient currenty hyperglycemic - Dr Matthews consulting. We appreciate his consult. (4) Hematuria Current Visit: Yes Status: Acute Code(s): R31.9 - HEMATURIA, UNSPECIFIED SNOMED Code(s): 07050623 Comment: - Urine slightly darker pink than previously - Cont Coumadin per pharmacy protocol - UA ordered - I suspected hematuria is due to trauma of ascencio insertion than subsequent anticoagulation as per reports it occured after Lovenox was started. (5) Hyponatremia Current Visit: Yes Status: Acute Code(s): E87.1 - HYPO-OSMOLALITY AND HYPONATREMIA SNOMED Code(s): 43185645 Comment: - Na 129 today; Cont reduced water intake - Dr Matthews/Len consulted and we appreciate their input. Most likely polydypsia Status and Disposition: D/C home when medically stable.
[2018-02-03] MEDS: Furosemide IV* 10 MG/ML 2 ML VIAL (20 MG) IV SCH (21:19)
[2018-02-04 06:23] LABS: ABS Basophils 0.1 10^3/ul (0-0.2); ABS Eosinophils 0.3 10^3/ul (0-0.6); ABS Lymphocytes 0.3 10^3/ul (1.0-4.8); ABS Monocytes 1.3 10^3/ul (0-0.8); ABS Neutrophils 7.1 10^3/ul (1.5-7.7); ABS Nucleated RBC 0 10^3/ul; Eosinophil % 3.5 %; Hematocrit 40 % (42-52); Hemoglobin 12.9 g/dl (14.0-18.0); Lymphocyte % 3.8 %; Mean Corpuscular HGB Conc 33 g/dl (31-36); Mean Corpuscular Hemoglobin 29 pg (27-31); Mean Corpuscular Volume 89 fL (80-94); Mean Platelet Volume 8.1 fL (7.4-10.4); Nucleated Red Blood Cells % 0.1; Platelet Count 181 10^3/ul (150-450); Red Blood Count 4.43 10^6/ul (4.00-5.40); Red Cell Distribution Width 18 % (10.5-15); White Blood Count 9.1 10^3/ul (3.5-10.8)
[2018-02-04 06:29] LABS: INR 1.56 (0.77-1.02)
[2018-02-04 06:43] LABS: EGFR Non-African American 163.9 (>60)
[2018-02-04] MEDS ORDERED: Potassium Chlor TAB* 20 MEQ TAB.ER PO ONE (07:42)
[2018-02-04] MEDS: Omeprazole CAP* 20 MG PO SCH (08:12)
[2018-02-04] MEDS: Aspirin EC TAB* 81 MG TAB.EC PO SCH (08:13)
[2018-02-04] MEDS: Insulin ISOPH/REG 70/30 (*) 1 UNITS UNIT SUBCUT SCH (08:13)
[2018-02-04] MEDS: Atorvastatin* 40 MG TAB PO SCH (08:13)
[2018-02-04] MEDS: Metoprolol Succinate XL TAB* 25 MG PO SCH (08:13)
[2018-02-04] MEDS: Nystatin TOP POWDER* 15 GM BTL TOPICAL SCH (08:14)
[2018-02-04] MEDS: Folic Acid TAB* 1 MG PO SCH (08:14)
[2018-02-04] MEDS ORDERED: Magnesium Oxide TAB* 400 MG PO SCH (09:00)
[2018-02-04] MEDS ORDERED: Furosemide TAB* 40 MG PO SCH (09:00)
--- NOTE | 2018-02-04 11:31 | CONSULT ---
Palliative / Hospice Consult Ordering Provider: Mayo Santana Subjective Code Status: Full Code Advance Directives Location: No Advance Directives MOLST Part A Completed: No - patient not prepared MOLST Part E Completed:: No - History or Present Illness History or Present Illness: This 72 year old of the [employer] is hospitalized on this occasion with hyponatremia and fluid overload. He has a history of NSCL cancer, treated with 35 rounds of radiation therapy by Dr. Rios in [place], as well as hx of stent for AAA, LBBB, AF on warfarin, [place] and continuing ischemic cardiomyopathy, DM2, and psoriasis on chronic methotrexate therapy at 20 mg weekly. 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 His hyponatremia has not been definitively attributed to overhydration, or to SIADH, but in any event he has severe cardiac pump compromise at present with an EF < 20%. He is planning to go home today. His arrived and we reviewed all the findings from this admission with her, as well as with the patient. Both the patient and his were unprepared to learn that he had end-stage CHF, and also the patient was under the impression that his cancer had been eradicated by his radiation therapy and that he only had remnant scarring in his lung. Lab Values: Abnormal Lab Results 02/03/18 02/03/18 02/03/18 11:55 17:15 21:41 WBC RBC Hgb Hct MCV MCH MCHC RDW Plt Count MPV Neut % (Auto) Lymph % (Auto) [place] % (Auto) Eos % (Auto) Baso % (Auto) Absolute Neuts (auto) Absolute Lymphs (auto) Absolute Monos (auto) Absolute Eos (auto) Absolute Basos (auto) Absolute Nucleated RBC Nucleated RBC % INR (Anticoag Therapy) Sodium Potassium Chloride Carbon Dioxide Anion Gap BUN Creatinine Est GFR ( Amer) Est GFR (Non-Af Amer) BUN/Creatinine Ratio Glucose POC Glucose (mg/dL) 291 H 159 H 181 H Calcium Phosphorus Magnesium 02/04/18 02/04/18 02/04/18 06:03 06:03 06:03 WBC 9.1 RBC 4.43 Hgb 12.9 L Hct 40 L MCV 89 MCH 29 MCHC 33 RDW 18 H Plt Count 181 MPV 8.1 Neut % (Auto) 77.8 Lymph % (Auto) 3.8 [place] % (Auto) 14.3 Eos % (Auto) 3.5 Baso % (Auto) 0.6 Absolute Neuts (auto) 7.1 Absolute Lymphs (auto) 0.3 L Absolute Monos (auto) 1.3 H Absolute Eos (auto) 0.3 Absolute Basos (auto) 0.1 Absolute Nucleated RBC 0 Nucleated RBC % 0.1 INR (Anticoag Therapy) 1.56 H Sodium 131 L Potassium 3.7 Chloride 96 L Carbon Dioxide 28 Anion Gap 7 BUN 15 Creatinine 0.50 L Est GFR ( Amer) 198.3 Est GFR (Non-Af Amer) 163.9 BUN/Creatinine Ratio 30.0 H Glucose 159 H POC Glucose (mg/dL) Calcium 8.7 Phosphorus 4.0 Magnesium 1.8 L 02/04/18 07:40 WBC RBC Hgb Hct MCV MCH MCHC RDW Plt Count MPV Neut % (Auto) Lymph % (Auto) [place] % (Auto) Eos % (Auto) Baso % (Auto) Absolute Neuts (auto) Absolute Lymphs (auto) Absolute Monos (auto) Absolute Eos (auto) Absolute Basos (auto) Absolute Nucleated RBC Nucleated RBC % INR (Anticoag Therapy) Sodium Potassium Chloride Carbon Dioxide Anion Gap BUN Creatinine Est GFR ( Amer) Est GFR (Non-Af Amer) BUN/Creatinine Ratio Glucose POC Glucose (mg/dL) 175 H Calcium Phosphorus Magnesium Laboratory Last Values WBC 9.1 10^3/ul (3.5-10.8) 02/04/18 06:03 RBC 4.43 10^6/ul (4.00-5.40) 02/04/18 06:03 Hgb 12.9 g/dl (14.0-18.0) L 02/04/18 06:03 Hct 40 % (42-52) L 02/04/18 06:03 MCV 89 fL (80-94) 02/04/18 06:03 MCH 29 pg (27-31) 02/04/18 06:03 MCHC 33 g/dl (31-36) 02/04/18 06:03 RDW 18 % (10.5-15) H 02/04/18 06:03 Plt Count 181 10^3/ul (150-450) 02/04/18 06:03 MPV 8.1 fL (7.4-10.4) 02/04/18 06:03 Neut % (Auto) 77.8 % 02/04/18 06:03 Lymph % (Auto) 3.8 % 02/04/18 06:03 [place] % (Auto) 14.3 % 02/04/18 06:03 Eos % (Auto) 3.5 % 02/04/18 06:03 Baso % (Auto) 0.6 % 02/04/18 06:03 Absolute Neuts (auto) 7.1 10^3/ul (1.5-7.7) 02/04/18 06:03 Absolute Lymphs (auto) 0.3 10^3/ul (1.0-4.8) L 02/04/18 06:03 Absolute Monos (auto) 1.3 10^3/ul (0-0.8) H 02/04/18 06:03 Absolute Eos (auto) 0.3 10^3/ul (0-0.6) 02/04/18 06:03 Absolute Basos (auto) 0.1 10^3/ul (0-0.2) 02/04/18 06:03 Absolute Nucleated RBC 0 10^3/ul 02/04/18 06:03 Nucleated RBC % 0.1 02/04/18 06:03 INR (Anticoag Therapy) 1.56 (0.77-1.02) H 02/04/18 06:03 APTT 31.8 seconds (26.0-36.3) 01/28/18 12:04 D-Dimer, Quantitative 294 ng/mL (Less Than 230) H 01/28/18 12:04 Sodium 131 mmol/L (135-145) L 02/04/18 06:03 Potassium 3.7 mmol/L (3.5-5.0) 02/04/18 06:03 Chloride 96 mmol/L (101-111) L 02/04/18 06:03 Carbon Dioxide 28 mmol/L (22-32) 02/04/18 06:03 Anion Gap 7 mmol/L (2-11) 02/04/18 06:03 BUN 15 mg/dL (6-24) 02/04/18 06:03 Creatinine 0.50 mg/dL (0.67-1.17) L 02/04/18 06:03 Est GFR ( Amer) 198.3 (>60) 02/04/18 06:03 Est GFR (Non-Af Amer) 163.9 (>60) 02/04/18 06:03 BUN/Creatinine Ratio 30.0 (8-20) H 02/04/18 06:03 Glucose 159 mg/dL (70-100) H 02/04/18 06:03 POC Glucose (mg/dL) 175 mg/dL (70-100) H 02/04/18 07:40 Hemoglobin A1c 8.3 % (4.0-5.6) H 01/29/18 04:11 Serum Osmolality 245 mOsm/kg (275-295) L 01/28/18 12:04 Lactic Acid 1.4 mmol/L (0.5-2.0) 01/28/18 12:04 Calcium 8.7 mg/dL (8.6-10.3) 02/04/18 06:03 Phosphorus 4.0 mg/dL (2.5-5.0) 02/04/18 06:03 Magnesium 1.8 mg/dL (1.9-2.7) L 02/04/18 06:03 Total Bilirubin 1.30 mg/dL (0.2-1.0) H 01/28/18 12:04 AST 18 U/L (13-39) 01/28/18 12:04 ALT 23 U/L (7-52) 01/28/18 12:04 Alkaline Phosphatase 67 U/L (34-104) 01/28/18 12:04 Total Creatine Kinase 36 U/L (10-223) 01/28/18 12:04 CK-MB (CK-2) 2.6 ng/mL (0.6-6.3) 01/28/18 12:04 Troponin I 0.01 ng/mL (<0.04) 01/28/18 20:20 B-Natriuretic Peptide 1709 pg/mL (<=100) H 01/28/18 12:04 Total Protein 6.2 g/dL (6.4-8.9) L 01/28/18 12:04 Albumin 3.4 g/dL (3.2-5.2) 01/28/18 12:04 Globulin 2.8 g/dL (2-4) 01/28/18 12:04 Albumin/Globulin Ratio 1.2 (1-3) 01/28/18 12:04 Procalcitonin < 0.1 ng/mL (<0.6) 01/28/18 12:04 TSH 0.90 mcIU/mL (0.34-5.60) 01/28/18 12:04 Thyroxine (T4) 9.84 g/dL (6.09-12.23) 01/28/18 12:04 Cortisol 12.38 mcg/dL 02/02/18 05:29 Urine Osmolality 250 mOsm/kg (100-1150) 01/28/18 16:30 U Sodium Concentration 67 mmol/L 01/28/18 16:30 - Objective Active Medications: Acetaminophen (Tylenol Tab*) 650 mg PO Q6H PRN PRN Reason: PAIN Last Admin: 02/03/18 17:20 Dose: 650 mg Aspirin (Aspirin Ec Tab*) 81 mg PO DAILY [facility] Last Admin: 02/04/18 08:13 Dose: 81 mg Atorvastatin Calcium (Lipitor*) 40 mg PO DAILY [facility] Last Admin: 02/04/18 08:13 Dose: 40 mg Folic Acid (Folvite Tab*) 1 mg PO DAILY [facility] Last Admin: 02/04/18 08:14 Dose: 1 mg Furosemide (Lasix Tab*) 40 mg PO DAILY [facility] Last Admin: 02/04/18 08:14 Dose: 40 mg Insulin Human Isoph/Insulin Regular (Humulin 70/30 (*)) 15 units SUBCUT 1700 [facility] Last Admin: 02/03/18 17:17 Dose: 15 units Insulin Human Isoph/Insulin Regular (Humulin 70/30 (*)) 30 units SUBCUT 0800 [facility] Last Admin: 02/04/18 08:13 Dose: 30 units Magnesium Oxide (Magox 400 Tab*) 400 mg PO DAILY [facility] Last Admin: 02/04/18 08:13 Dose: 400 mg Metoprolol Succinate (Toprol Xl Tab*) 25 mg PO DAILY [facility] Last Admin: 02/04/18 08:13 Dose: 25 mg Nystatin (Nystatin Top Powder*) 1 applic TOPICAL BID [facility] Last Admin: 02/04/18 08:14 Dose: 1 applic Omeprazole (Prilosec Cap*) 20 mg PO QAM@0730 [facility] Last Admin: 02/04/18 08:12 Dose: Not Given Pharmacy Profile Note (Coumadin Per Pharmacy*) 1 note FOLLOW UP 1700 [facility] Last Admin: 02/03/18 17:17 Dose: 1 note Warfarin Sodium (Coumadin Tab(*)) 6 mg PO ONCE ONE Stop: 02/04/18 17:01 Vital Signs: Vital Signs: Temp Pulse Resp BP Pulse Ox 97.6 F 92 16 140/77 96 02/04/18 07:47 02/04/18 07:47 02/04/18 07:50 02/04/18 07:47 02/04/18 07:47 Patient Weight: Weight 207 lb 11.2 oz Intake and Output: Intake & Output 02/02/18 02/03/18 02/04/18 02/05/18 06:59 06:59 06:59 06:59 Intake Total 715 240 120 120 Output Total 5175 3030 Balance -0894 -8100 120 120 Weight 207 lb 11.2 oz Intake: IV Fluids 10 NS (0.9%) 10 Oral 705 240 120 120 Output: [place] 5177 3030 Other: Estimated Void Small # Bowel Movements 0 0 0 Estimated Stool Amount Medium # Voids 0 ADLs: Meal Record Start: 01/28/18 15: 26 Freq: ,,18 Status: Complete Protocol: Created 01/28/18 15:26 System (Rec: 01/28/18 15:26 System ICU-C25) Document 01/28/18 18:00 [id number] (Rec: 01/28/18 21:47 [id number] ICU-C07) Document 01/29/18 09:00 NJT1593 (Rec: 01/29/18 10:09 QHW2593 ICU-C07) Document 01/29/18 13:30 NZN7276 (Rec: 01/29/18 13:34 DKV0481 ICU-M34) Document 01/29/18 18:00 FOP7534 (Rec: 01/29/18 20:01 URY7355 ICU-C07) Document 01/30/18 09:00 YDG2431 (Rec: 01/30/18 11:06 RSU3422 ICU-M34) Document 01/30/18 13:00 PCM4013 (Rec: 01/30/18 13:14 NGF5666 ICU-M34) Document 01/31/18 09:00 CRL5770 (Rec: 01/31/18 09:53 IST6745 ICU-C06) ADLs: Meal Record Start: 01/31/18 12: 03 Freq: DAILY@0900,1400,1800 Status: Active Protocol: Created 01/31/18 12:03 JGC2407 (Rec: 01/31/18 12:03 RCE2042 ICU-C25) Document 01/31/18 14:00 TVP5535 (Rec: 01/31/18 14:56 LOQ6534 MED-C11) Document 01/31/18 18:00 YHZ7141 (Rec: 01/31/18 20:26 RVH3986 MED-C13) Document 02/01/18 09:00 TWO5763 (Rec: 02/01/18 10:24 UTW3936 MED-C11) Document 02/01/18 14:00 PNI0085 (Rec: 02/01/18 17:49 OLY1661 MED-C11) Document 02/01/18 18:00 OHY0505 (Rec: 02/01/18 18:42 UXT8734 MED-C11) Document 02/02/18 09:00 BHM1219 (Rec: 02/02/18 09:30 CVT9714 MED-C09) Document 02/02/18 14:00 KDY8452 (Rec: 02/02/18 14:29 TRZ4387 MED-C11) Document 02/02/18 18:00 JOS0237 (Rec: 02/02/18 21:34 RGK6695 MED-C04) Document 02/03/18 09:00 DZP0331 (Rec: 02/03/18 09:13 SOH2635 MED-C11) Document 02/03/18 14:00 XAB5567 (Rec: 02/03/18 14:15 NKV0275 MED-C11) Document 02/03/18 17:51 KHI3064 (Rec: 02/03/18 17:51 NPC4833 MED-C11) Document 02/04/18 09:00 FXG3527 (Rec: 02/04/18 10:02 BRF1331 MED-C09) Intake and Output Start: 01/28/18 12: 09 Freq: Status: Active Protocol: Document 01/28/18 15:00 MNU7450 (Rec: 01/28/18 15:00 TXE3083 EDL-C01) Intake and Output Start: 01/28/18 15: 26 Freq: Q1HR Status: Complete Protocol: Created 01/28/18 15:26 System (Rec: 01/28/18 15:26 System ICU-C25) Document 01/28/18 16:00 FPF6748 (Rec: 01/28/18 18:39 JMA1916 ICU-C06) Document 01/28/18 17:00 IHJ5184 (Rec: 01/28/18 18:39 DRR3023 ICU-C06) Document 01/28/18 18:00 PII2739 (Rec: 01/28/18 18:39 IVP9091 ICU-C06) Document 01/28/18 20:00 NWL0562 (Rec: 01/28/18 21:01 BLV0470 ICU-C07) Document 01/28/18 21:00 ZGK1281 (Rec: 01/28/18 21:21 SGP1769 ICU-M34) Document 01/28/18 22:00 NBW9335 (Rec: 01/28/18 22:04 YBH9593 ICU-C07) Document 01/28/18 23:00 GPE3706 (Rec: 01/28/18 23:13 SZG7593 ICU-C07) Document 01/29/18 00:00 IPO9536 (Rec: 01/29/18 00:19 DCF2510 ICU-C07) Document 01/29/18 01:00 GGO0339 (Rec: 01/29/18 01:18 VPV5902 ICU-C07) Document 01/29/18 02:00 NOE1764 (Rec: 01/29/18 02:30 BCE0297 ICU-C07) Document 01/29/18 03:00 EJE1938 (Rec: 01/29/18 03:00 FWO0587 ICU-C07) Document 01/29/18 04:00 WWO8662 (Rec: 01/29/18 04:18 KHR0192 ICU-C07) Document 01/29/18 05:00 KDS7631 (Rec: 01/29/18 05:51 LZX9307 ICU-C07) Document 01/29/18 05:51 PVI2695 (Rec: 01/29/18 05:51 EKX4024 ICU-C07) Document 01/29/18 07:00 RWJ3512 (Rec: 01/29/18 07:11 XKA7202 ICU-C07) Document 01/29/18 07:00 AEF7063 (Rec: 01/29/18 08:35 GOW9809 ICU-M34) Document 01/29/18 08:00 ETT5337 (Rec: 01/29/18 10:06 NYK0058 ICU-C07) Document 01/29/18 09:00 UVJ2453 (Rec: 01/29/18 10:09 VMI0606 ICU-C07) Document 01/29/18 10:10 LFZ9913 (Rec: 01/29/18 10:13 RJL3678 ICU-C07) Document 01/29/18 11:05 IEM7561 (Rec: 01/29/18 11:23 OZF9880 ICU-C07) Document 01/29/18 11:40 XSD4165 (Rec: 01/29/18 12:27 LYY2520 ICU-C07) Document 01/29/18 13:05 DDU1111 (Rec: 01/29/18 13:18 XUG4457 ICU-C07) Document 01/29/18 14:10 UUA3349 (Rec: 01/29/18 14:44 XAN2752 ICU-C07) Document 01/29/18 15:00 JAI2746 (Rec: 01/29/18 16:18 MIQ0028 ICU-M34) Document 01/29/18 16:00 ZFR0493 (Rec: 01/29/18 16:18 YMY6127 ICU-M34) Document 01/29/18 18:00 AJA2284 (Rec: 01/29/18 18:05 OCN8388 ICU-M34) Document 01/29/18 19:00 KPJ0325 (Rec: 01/29/18 20:01 RAH3656 ICU-C07) Document 01/29/18 20:00 IVY8348 (Rec: 01/29/18 20:41 OID3495 ICU-C07) Document 01/29/18 20:47 XMF0155 (Rec: 01/29/18 20:49 BKE9956 ICU-C07) Document 01/29/18 22:00 ITW8889 (Rec: 01/29/18 22:09 WOB2906 ICU-C07) Document 01/29/18 23:00 WTU9718 (Rec: 01/29/18 23:19 IHR4049 ICU-C07) Document 01/30/18 00:00 PKQ2273 (Rec: 01/30/18 00:13 TKL4724 ICU-C07) Document 01/30/18 01:00 AFO0228 (Rec: 01/30/18 01:17 NVE0125 ICU-C07) Document 01/30/18 02:00 VME6796 (Rec: 01/30/18 02:05 GLV2373 ICU-C07) Document 01/30/18 03:00 WVU9008 (Rec: 01/30/18 03:15 CWU3739 ICU-C07) Document 01/30/18 04:00 SNP4800 (Rec: 01/30/18 04:22 BZU1688 ICU-C07) Document 01/30/18 05:00 JCR9301 (Rec: 01/30/18 05:16 MCM2071 ICU-M34) Document 01/30/18 06:00 DKF1449 (Rec: 01/30/18 06:38 XPO4669 ICU-C07) Document 01/30/18 06:45 XQH1302 (Rec: 01/30/18 06:46 NXT0236 ICU-C07) Document 01/30/18 06:45 ZZN6042 (Rec: 01/30/18 07:45 VKO7827 ICU-M34) Document 01/30/18 08:00 DHV4612 (Rec: 01/30/18 09:01 NIK2751 ICU-C07) Document 01/30/18 09:00 FZW2814 (Rec: 01/30/18 09:01 EBI0953 ICU-C07) Document 01/30/18 10:00 PKT1012 (Rec: 01/30/18 11:06 QAT8471 ICU-M34) Document 01/30/18 11:00 MOB3929 (Rec: 01/30/18 11:06 KZU6678 ICU-M34) Document 01/30/18 12:10 JZW6818 (Rec: 01/30/18 13:10 CNO7859 ICU-C07) Document 01/30/18 13:00 USU8706 (Rec: 01/30/18 13:14 GTQ0102 ICU-M34) Document 01/30/18 14:05 AWI8395 (Rec: 01/30/18 14:36 LMA3948 ICU-C07) Document 01/30/18 15:00 KLQ5254 (Rec: 01/30/18 16:59 CZF7182 ICU-M24) Document 01/30/18 16:00 CGJ2080 (Rec: 01/30/18 16:59 LWP0997 ICU-M24) Document 01/30/18 19:00 KJM1986 (Rec: 01/30/18 22:13 QAE1539 ICU-C07) Document 01/30/18 20:00 TQB2788 (Rec: 01/30/18 22:13 VIP1796 ICU-C07) Document 01/30/18 21:00 IES2780 (Rec: 01/30/18 22:15 FMB8494 ICU-C07) Document 01/30/18 22:00 WNQ1357 (Rec: 01/30/18 22:30 WYD6163 ICU-C07) Document 01/30/18 23:00 PAP6179 (Rec: 01/30/18 23:07 JGX2152 ICU-C07) Document 01/31/18 00:00 KPA6578 (Rec: 01/31/18 01:38 UBY8596 ICU-C07) Document 01/31/18 01:00 WZI6360 (Rec: 01/31/18 01:59 AMV9144 ICU-C07) Document 01/31/18 01:58 NAE8238 (Rec: 01/31/18 01:59 CZM8239 ICU-C07) Document 01/31/18 03:30 IBA3115 (Rec: 01/31/18 04:22 EWP4126 ICU-C07) Document 01/31/18 04:00 JPW0183 (Rec: 01/31/18 05:02 PNV1429 ICU-C07) Document 01/31/18 04:54 XAV1833 (Rec: 01/31/18 05:02 QLE9469 ICU-C07) Document 01/31/18 05:54 VGC8148 (Rec: 01/31/18 05:55 XQA1955 ICU-C07) Document 01/31/18 08:00 UDW9377 (Rec: 01/31/18 09:53 UIG6551 ICU-C06) Document 01/31/18 09:00 BNE1736 (Rec: 01/31/18 09:53 PFR0067 ICU-C06) Document 01/31/18 11:22 WQF1634 (Rec: 01/31/18 11:22 NNX2584 ICU-C06) Intake and Output Start: 01/31/18 12: 03 Freq: DAILY@0600,1400,2200 Status: Active Protocol: Document 01/31/18 12:00 BNP9892 (Rec: 01/31/18 13:15 EWG1778 ICU-M27) Created 01/31/18 12:03 CKT1758 (Rec: 01/31/18 12:03 TTW1734 ICU-C25) Document 01/31/18 14:00 NLD8631 (Rec: 01/31/18 14:56 GWT7242 MED-C11) Document 01/31/18 22:00 UMF9246 (Rec: 01/31/18 23:15 KDD4682 MED-C11) Document 02/01/18 03:55 HQF1547 (Rec: 02/01/18 03:55 YRL2211 MED-C42) Document 02/01/18 06:00 FIB8662 (Rec: 02/01/18 06:01 VFE0987 MED-C42) Document 02/01/18 14:00 PAF7186 (Rec: 02/01/18 16:29 QLO2190 MED-M01) Document 02/01/18 18:43 QYE2532 (Rec: 02/01/18 18:43 IAZ0980 MED-C11) Document 02/01/18 19:47 UKI8812 (Rec: 02/01/18 19:48 ZCB2523 MED-C11) Document 02/01/18 22:00 DGX3893 (Rec: 02/01/18 23:59 CTD4156 MED-C05) Document 02/02/18 05:50 NTB4084 (Rec: 02/02/18 05:50 VEC5871 MED-C11) Document 02/02/18 14:00 LRC0811 (Rec: 02/02/18 14:29 ZPQ9184 MED-C11) Document 02/02/18 22:00 MBJ3205 (Rec: 02/02/18 22:06 ROT8688 MED-C04) Document 02/03/18 06:00 IAE3483 (Rec: 02/03/18 06:46 QMQ3232 MED-C11) Document 02/03/18 14:00 IID0772 (Rec: 02/03/18 14:15 TVT9416 MED-C11) Document 02/03/18 21:39 FVH3791 (Rec: 02/03/18 21:40 QZH8052 MED-C16) Document 02/04/18 02:00 TVF9700 (Rec: 02/04/18 02:31 PXI7938 MED-C42) Document 02/04/18 06:00 SYL2069 (Rec: 02/04/18 06:17 MUB3623 MED-C11) General Impression: Pleasant elderly man in NAD sitting in bed. Head: Symmetrical Eyes: No Scleral Icterus, PERRLA Ears/Nose/Mouth/Throat: NL Teeth, Lips, Gums, Mucous Membranes Moist Neck: NL Appearance and Movements; NL JVP, Trachea Midline Cardiovascular: NL Sounds; No Murmurs; No JVD, - - irregularly irregular Respiratory: Symmetrical Chest Expansion and Respiratory Effort, - - Decreased BS FRANCHESCA, crepitant rales right base Abdominal: - - Distended abdomen, NABS, no HSM Extremities: No Clubbing, Cyanosis, - - Psoriasis not apparent at present. Neurological: Alert and Oriented x 3 - Assessment Assessment: We had a long discussion with this patient and his , both of whom exhibited a high degree of denial and also ambivalence about advance care planning and goals of care. They were unwilling to make any decisions about code status for the time being, and so were provided with a MOLST form to take home and discuss with their PCP, Dr. Miles at the [facility], or their radiation oncologist, Dr. Carlo Rios ([phone]). They were also educated about the availability of hospice services at home, but wish to consider this more carefully. The patient qualifies for hospice services on the basis of his end- stage CHF with EF <20% as well as his lung cancer, if he receives no further treatment. I spoke to Dr. Rios who said he would not offer this patient any further life-prolonging treatment, and would encourage him to seek hospice services at home. The patient has no further palliative needs at this time although I notice he has not gotten his weekly Methotrexate dose since being hospitalized. Thank you for the consultation. - Plan Consult Plan (MU): Hospice - Time On Unit Date of Evaluation: 02/04/18 Hospice Consult Time in: 09:30 Hospice Consult Time Out: 11:00 Hospice Consult Time Total: 90 > 50% of Time Spend In Counseling or Coordinating Care: Yes
[2018-02-04 13:08] VITALS: BP 123/59
--- NOTE | 2018-02-04 13:11 | PN ---
Subjective Date of Service: 02/04/18 Interval History: Patient seen today, in bed doing well. So far total loss of 40 lbs since admission. Sodium is 131. Not using oxygen. Taking po well. Eager to be discharged and [facility] He agreed to fill a Rx for Furosemide from his local pharmacy until he is followed [facility] the [facility] weeks Family History: Unchanged from Admission Social History: Unchanged from Admission Objective Active Medications: Acetaminophen (Tylenol Tab*) 650 mg PO Q6H PRN PRN Reason: PAIN Last Admin: 02/03/18 17:20 Dose: 650 mg Aspirin (Aspirin Ec Tab*) 81 mg PO DAILY [facility] Last Admin: 02/04/18 08:13 Dose: 81 mg Atorvastatin Calcium (Lipitor*) 40 mg PO DAILY [facility] Last Admin: 02/04/18 08:13 Dose: 40 mg Folic Acid (Folvite Tab*) 1 mg PO DAILY [facility] Last Admin: 02/04/18 08:14 Dose: 1 mg Furosemide (Lasix Tab*) 40 mg PO DAILY [facility] Last Admin: 02/04/18 08:14 Dose: 40 mg Insulin Human Isoph/Insulin Regular (Humulin 70/30 (*)) 15 units SUBCUT 1700 [facility] Last Admin: 02/03/18 17:17 Dose: 15 units Insulin Human Isoph/Insulin Regular (Humulin 70/30 (*)) 30 units SUBCUT 0800 [facility] Last Admin: 02/04/18 08:13 Dose: 30 units Magnesium Oxide (Magox 400 Tab*) 400 mg PO DAILY [facility] Last Admin: 02/04/18 08:13 Dose: 400 mg Metoprolol Succinate (Toprol Xl Tab*) 25 mg PO DAILY [facility] Last Admin: 02/04/18 08:13 Dose: 25 mg Nystatin (Nystatin Top Powder*) 1 applic TOPICAL BID [facility] Last Admin: 02/04/18 08:14 Dose: 1 applic Omeprazole (Prilosec Cap*) 20 mg PO QAM@0730 [facility] Last Admin: 02/04/18 08:12 Dose: Not Given Pharmacy Profile Note (Coumadin Per Pharmacy*) 1 note FOLLOW UP 1700 [facility] Last Admin: 02/03/18 17:17 Dose: 1 note Warfarin Sodium (Coumadin Tab(*)) 6 mg PO ONCE ONE Stop: 02/04/18 17:01 Vital Signs - 8 hr 02/04/18 02/04/18 07:47 07:50 Temperature 97.6 F Pulse Rate 92 Respiratory 16 16 Rate Blood Pressure 140/77 (mmHg) O2 Sat by Pulse 96 Oximetry Oxygen Devices in Use Now: None Appearance: Awake, alert no distress Eyes: No Scleral Icterus, PERRLA, - - EOMI Ears/Nose/Mouth/Throat: NL Teeth, Lips, Gums, Mucous Membranes Moist Neck: NL Appearance and Movements; NL JVP, Trachea Midline Respiratory: Symmetrical Chest Expansion and Respiratory Effort, Clear to Auscultation Cardiovascular: NL Sounds; No Murmurs; No JVD, RRR, No Edema Abdominal: NL Sounds; No Tenderness; No Distention Extremities: No Edema Skin: No Rash or Ulcers Neurological: Alert and Oriented x 3, NL Muscle Strength and Tone Result Diagrams: 02/04/18 06:03 02/04/18 06:03 Additional Lab and Data: Laboratory Results - last 24 hr 02/01/18 02/01/18 02/02/18 17:05 22:29 04:02 WBC RBC Hgb Hct MCV MCH MCHC RDW Plt Count MPV INR (Anticoag Therapy) Sodium Potassium Chloride Carbon Dioxide Anion Gap BUN Creatinine Est GFR ( Amer) Est GFR (Non-Af Amer) BUN/Creatinine Ratio Glucose 191 H POC Glucose (mg/dL) 242 H 290 H Calcium Cortisol 02/02/18 02/02/18 02/02/18 05:29 05:29 05:29 WBC 10.0 RBC 4.53 Hgb 13.1 L Hct 40 L MCV 89 MCH 29 MCHC 33 RDW 18 H Plt Count 188 MPV 7.9 INR (Anticoag Therapy) 1.35 H Sodium 126 L Potassium 4.0 Chloride 91 L Carbon Dioxide 27 Anion Gap 8 BUN 8 Creatinine 0.48 L Est GFR ( Amer) 207.9 Est GFR (Non-Af Amer) 171.8 BUN/Creatinine Ratio 16.7 Glucose 182 H POC Glucose (mg/dL) Calcium 8.6 Cortisol 12.38 02/02/18 02/02/18 07:23 11:47 WBC RBC Hgb Hct MCV MCH MCHC RDW Plt Count MPV INR (Anticoag Therapy) Sodium Potassium Chloride Carbon Dioxide Anion Gap BUN Creatinine Est GFR ( Amer) Est GFR (Non-Af Amer) BUN/Creatinine Ratio Glucose POC Glucose (mg/dL) 205 H 325 H Calcium Cortisol Microbiology and Other Data: Microbiology 01/28/18 16:30 Nasal Screen MRSA (PCR) - Final Nasal Mrsa Not Detected Assess/Plan/Problems-Billing Assessment: 72y M pmhx of NSC Lung Ca stage 2b (s/p radiation) Afib on warfarin, AAA s/p stent, past history of SC, DM; presented to the Ed with shortness of breath and increasing lower extremity edema. He also reported left sided chest pain for weeks, but pain increased which lead him to ED, STEMI alert called and ruled out for suspicion for STEMI. EKG demonstrated LBBB pattern, afib. Found to have severe hyponatremia of 111. Was in ICU now on 4th and sodium 126. Hospital stay has been completed by occasional hypoglycemia. - Patient Problems (1) Afib Current Visit: Yes Status: Acute Code(s): I48.91 - UNSPECIFIED ATRIAL FIBRILLATION SNOMED Code(s): 46924004 Comment: - Restarted on Metoprol Succ 25 mg XL today as patient has maintained HR > 60 bpm, his usual home dose is 100 mg daily. today his pulse in the 90's will discharge him on home regimen of toprol XL 100 mg daily now that he is out of the heart failure - Continue warfarin as per home/[facility] regimen - Continue Entresto / bid (2) CHF (congestive heart failure) Current Visit: Yes Status: Acute Code(s): I50.9 - HEART FAILURE, UNSPECIFIED SNOMED Code(s): 90996258 Comment: - Acute on chronic systollic CHF - US of both leg negative for DVT - Echo at our facility revealed EF <20%; I reviewed the available [facility] from the [facility] and in his medical face sheet problem list it did list Cardiomyopathy and decrease LV functions. I did inquire further with the patient and he tells me that he was offered AICD by the [facility] and he knows that his heart is working less than 20% but he declined AICD as his friend on the table during a similar procedure - I reviewed his [facility] medications and he is not on lasix. I will discharge with Lasic 40 mg in am and 20 mg in pm with potassium supplment 20 meq daily. Follow up with [facility] week (3) Diabetes mellitus Current Visit: Yes Status: Acute Code(s): E11.9 - TYPE 2 DIABETES MELLITUS WITHOUT COMPLICATIONS SNOMED Code(s): 32607306 Comment: - Evening dose reduced from 20 units to 15 units and morning dose increased to 30 units as recommended - No hypoglycemia this morning - Patient currenty hyperglycemic - Dr Matthews consulting. We appreciate his consult. - Will discharge home at his home regimen from the [facility] (4) Hematuria Current Visit: Yes Status: Acute Code(s): R31.9 - HEMATURIA, UNSPECIFIED SNOMED Code(s): 46289201 Comment: - Urine slightly darker pink than previously - Cont Coumadin per pharmacy protocol - UA ordered - I suspected hematuria is due to trauma of ascencio insertion than subsequent anticoagulation as per reports (5) Hyponatremia Current Visit: Yes Status: Acute Code(s): E87.1 - HYPO-OSMOLALITY AND HYPONATREMIA SNOMED Code(s): 39040410 Comment: - Na 131 today; Cont reduced water intake - Dr Matthews/Len consulted and we appreciate their input. Most likely polydypsia (6) Non-small cell lung cancer (NSCLC) Current Visit: No Status: Acute Code(s): C34.90 - MALIGNANT NEOPLASM OF UNSP PART OF UNSP BRONCHUS OR LUNG SNOMED Code(s): 719040755 Comment: - CT chest did reveal no PE but it did shows the 4.5 cm in thge left upper lobe Stage II-T3-N0 M0 - S/P radiation - Needs to follow up with his [facility]ology Dr. R[facility] [place] (7) S/P AAA repair Current Visit: No Status: Acute Code(s): Z98.890 - OTHER SPECIFIED POSTPROCEDURAL STATES; Z86.79 - PERSONAL HISTORY OF OTHER DISEASES OF THE CIRCULATORY SYSTEM SNOMED Code(s): 368109352 Comment: - S/P repair with stent Status and Disposition: D/C home when medically stable.
[2018-02-04] MEDS ORDERED: Warfarin TAB(*) 6 MG PO ONE (17:00)
--- NOTE | 2018-02-06 02:58 | DS ---
CC: Dr. Marquez, [facility] DISCHARGE SUMMARY: DATE OF ADMISSION: 01/28/18 DATE OF DISCHARGE: 02/04/18 FINAL DISCHARGE DIAGNOSES: 1. Hyponatremia with a sodium level of 111, severe. 2. Congestive heart failure, [id number], systolic, ejection fraction less than 20%. 3. Chronic atrial fibrillation. 4. Diabetes mellitus. 5. Left upper lobe lung cancer. 6. Hematuria, resolved, most likely traumatic and anticoagulation. 7. History of abdominal aortic aneurysm repair. HOSPITAL COURSE: The patient presented to our facility, [facility], on 01/28/18, for wors ening shortness of breath with increased weight and lower extremity edema associated with left chest pain. On presentation, STEMI alert was called in for abnormal EKG finding; however, the EKG did show left bundle-branch pattern with underlying atrial fibrillation. Therefore, the patient was deemed t o have hyponatremia, no sign of acute TX, and he was admitted to ICU for hyponatremia management and acute CHF exacerbation with a chest pain, rule out TX. His chest pain was ruled out by criteria of h is symptomatology and his troponin was negative x3 set and his INR was found to be subtherapeutic. H e was bridged with Lovenox and an echocardiogram was obtained to assess his LV function as we had no prior record in our facility. He was started on IV Lasix and was placed on fluid restriction and ser ial chemistry was obtained to closely follow up his sodium level. The patient was maintained in ICU and was transferred to the medical floor on 02/01/18 with management of CHF and was seen and evaluate d by me. His initial encounter on 02/03/18. The patient was doing well on my initial encounter, abl e to sit out of bed. No changes to his medication was made and he was remained in the hospital for t he following day and I saw him again on 02/04/18. At that time, overall condition is improved. He l ost about 40 pounds since admission and his sodium has improved to 131 by 02/04/18. I did come acros s records from the [facility] and on reviewing our echocardiogram, his echocardiogram revealed ejection fract ion less than 20% with no prior EF in our record. I reviewed his record from the [facility] that was availab le to us and it does list history of left ventricle decreased function. He is not on any diuretic; h owever, I did with the patient, he assured me he was not any diuretic. When I asked him if he was approached regarding defibrillator or pacemaker, he tells me that he was informed that he does re quire a pacemaker and a defibrillator, but for which he declined. Hence, I believe that his heart fa ilure is chronic and an acute exacerbation, probably from volume overload and possible diet and fluid noncompliance and for that, we manage him with Lasix intravenously, transition to oral Lasix and cur rently he is on 40 mg in the morning, 20 at night and instructed him to adhere to 1500 to 2000 fluid restriction in 24 hours, for which he seemed to understand. Otherwise, his hospital course was fairl y unremarkable, no complication, and he is deemed for discharge with followup with outpatient as outl ined below. PHYSICAL EXAMINATION: Reveals a temperature of 97.6, pulse 92, respiratory rate 16, pressure 140/77, satting 96%. He is awake, alert, no distress, sitting at the edge of the bed, tolerating lunch well . Extraocular muscles intact. Lungs: Clear to auscultation. I did not appreciate any rales or scrap piler ckles. Cardiovascular: S1, S2. I did not appreciate any murmur. Irregularly irregular. Abdomen: Positive bowel sounds, soft, nontender, nondistended. Extremities: He has no pedal edema. DIAGNOSTIC STUDIES/LAB DATA: He had several diagnostic studies including CBC, which were fairly unre markable. Hematocrit ranged between 42 and 40. His chemistry was significantly for a sodium of 111 on admission, improved to 131 on discharge. Electrolyte disturbance with hyperkalemia and hypermagne semia, which were corrected. INR is subtherapeutic in the 1.5. CT angiogram of the chest and the abdomen reveals no evidence of pulmonary embolism, no aortic dissec tion. Evidence of aortic stent graft repair. There is a large left lung mass in the left upper lobe measuring about 4.5 cm. Echocardiogram, 01/28/18, revealed ejection fraction less than 20%. Pattern of left bundle-branch block. Left atrium severely dilated. Right ventricle moderately dilated. Ev idence of moderate pulmonary hypertension. Ultrasound of the lower extremity bilaterally, there was no evidence for DVT. CONSULTATIONS: Dr. Galindo Matthews, Endocrinology; Dr. Silvestre Salgado, Nephrology. DISCHARGE MEDICATIONS: 1. Lasix 40 mg in the morning, 20 mg at night. 2. Magnesium oxide 400 mg daily. 3. Toprol-XL 100 mg daily. 4. Potassium 20 mEq daily. 5. Multivitamin once a day. 6. Methotrexate 20 mg weekly. 7. Amlodipine 5 mg daily. 8. Entresto one tablet twice a day. 9. Omeprazole 20 mg in the morning. 10. Folic acid 1 mg daily. 11. Aspirin 81 mg daily. 12. Loratadine 10 mg daily. 13. Atorvastatin 40 mg daily. 14. Warfarin 5 mg at bedtime. 15. Salsalate 500 mg 3 times a day as needed. 16. Insulin 70/30, 33 units in the morning, 26 units in the evening as per home regimen. DISCHARGE INSTRUCTIONS: The patient to adhere to 2000 cc of fluid in 24 hours or less. For his atrial fibrillation, he was resumed on his metoprolol 100 mg as per home regimen and continue his warfarin as per the [facility] regimen and to follow up with them within 1 week for further adjustment o f his Coumadin dose and continue his Entresto b.i.d. For his CHF, I placed him on Lasix 40 mg in the morning, 20 mg at night. I advised him to follow up with the [facility] in 1 week to make sure his BNP has been checked. For his diabetes, resume his home insulin. For his hematuria, which has resolved, I presumed it was traumatic from the Briseno placement. He was on Lovenox injection on admission at night to the ICU, which I will not pursue unless he develop furt her hematuria. For his small lung cancer, he does follow up with Dr. Marquez [facility] the [facility]. I advised him to follow up w ith him as well. [id number]/[facility] #: [id number]
== END 2018-02-04 14:25 | disposition home or self-care (01) | DRG 640 ==
LOC: ED 12:00 → ICU 14:41 → MED 01-31 12:25
PROVIDERS: ADMIT Internal Medicine Critical Care Medicine; ATTEND Internal Medicine Critical Care Medicine
PROC: 0T9B70Z Drainage of Bladder with Drainage Device, Via Natural or Artificial Opening (ICD-10-PCS; principal; 2018-01-28)
DX: E87.1 Hypo-osmolality and hyponatremia (principal); I50.23 Acute on chronic systolic (congestive) heart failure; R18.8 Other ascites; C34.12 Malignant neoplasm of upper lobe, left bronchus or lung; I44.7 Left bundle-branch block, unspecified; K80.20 Calculus of gallbladder without cholecystitis without obstruction; E87.5 Hyperkalemia; E83.41 Hypermagnesemia; I48.2 Chronic atrial fibrillation; I25.5 Ischemic cardiomyopathy; L40.9 Psoriasis, unspecified; I25.10 Atherosclerotic heart disease of native coronary artery without angina pectoris; E66.9 Obesity, unspecified; I27.20 Pulmonary hypertension, unspecified; R59.0 Localized enlarged lymph nodes; I34.0 Nonrheumatic mitral (valve) insufficiency; R31.9 Hematuria, unspecified; T45.515A Adverse effect of anticoagulants, initial encounter; E11.649 Type 2 diabetes mellitus with hypoglycemia without coma; Y92.239 Unspecified place in hospital as the place of occurrence of the external cause; Z79.82 Long term (current) use of aspirin; Z88.5 Allergy status to narcotic agent; Z82.49 Family history of ischemic heart disease and other diseases of the circulatory system; I25.2 Old myocardial infarction; Z72.89 Other problems related to lifestyle; Z87.891 Personal history of nicotine dependence; Z79.4 Long term (current) use of insulin; Z68.33 Body mass index [BMI] 33.0-33.9, adult; Z91.11 Patient's noncompliance with dietary regimen
CPT/HCPCS: 36415; 71045; 71275; 74174; 80048; 80053; 82533; 82550; 82553; 82947; 83036; 83605; 83735; 83880; 83930; 83935; 84100; 84145; 84300; 84436; 84443; 84484; 85025; 85027; 85379; 85610; 85730; 87641; 93005; 93306; 93970; 99285; A9270-GY; J1650; J1940; J3475; Q9967

== ENCOUNTER 2018-07-31 09:10 | Emergency (ER) | payer OTHER ==
[2018-07-31] MEDS ORDERED: LORazepam INJ* 2 MG/ML 1 ML VIAL ONE (09:19)
[2018-07-31] MEDS ORDERED: Lorazepam PYXIS KEY ONE (09:19)
[2018-07-31] MEDS ORDERED: Lorazepam PYXIS KEY PRN (09:22)
[2018-07-31] MEDS ORDERED: LORazepam INJ* 2 MG/ML 1 ML VIAL IV PUSH ONE (09:22)
--- NOTE | 2018-07-31 09:40 | ED ---
HPI Cardiac - HPI Summary HPI Summary: This patient is a 73 year old M brought in by ambulance to [facility] due to unresponsiveness at home this morning. EMS reports patients family found him on the ground and called; they did not provide MOLST paperwork. EMS reports a history of aggressive lung cancer and CHF with Hospice care pending. EMS additionally reports a hx of DM with a blood glucose of 160. BP was 54/20, EMS provided fluid bolus with mild improvement in responsiveness. EMS states report no oxycodone use today. HPI is limited. Patient is level 5 caveat. - History of Current Complaint Stated Complaint: UNRESPONSIVE PER EMS Hx Obtained From: EMS Onset/Duration: Started Minutes Ago Timing: Constant - Additional Pertinent History Primary Care Physician: [id number] - Allergy/Home Medications Allergies/Adverse Reactions: Allergies Allergy/AdvReac Type Severity Reaction Status Date / Time morphine Allergy Hallucinati Verified 01/28/18 14:58 ons PMH/Surg Hx/FS Hx/Imm Hx Endocrine/Hematology History: Reports: Hx Diabetes - on insulin Cardiovascular History: Reports: Hx Atrial Fibrillation, Hx Myocardial Infarction, Other Cardiovascular Problems/Disorders - cardiac cath Denies: Hx Hypertension Respiratory History: Reports: Hx Lung Cancer - non small cell GI History: Reports: Hx Hiatal Hernia Comment Only: Other GI Disorders - aortic aneurism with repair,stent History: Denies: Hx Renal Disease Musculoskeletal History: Reports: Hx Arthritis, Hx Back Problems, Other Musculoskeletal History - fracture ribs 1974 Sensory History: Reports: Hx Contacts or Glasses, Hx Hearing Aid Denies: Hx Legally Blind, Hx Deafness Opthamlomology History: Reports: Hx Contacts or Glasses Denies: Hx Legally Blind - Cancer History Cancer Type, Location and Year: lung cancer - Surgical History Surgery Procedure, Year, and Place: AAA repair Infectious Disease History: Denies: Traveled Outside the [place] in Last 30 Days - Family History Known Family History: Positive: Cardiac Disease - mother - [place] , Other - father - [place] - Social History Alcohol Use: Occasionally Alcohol Amount: one beer a year Substance Use Type: Reports: None Smoking Status (MU): Former Smoker Review of Systems Constitutional: Other - minimally responsive All Other Systems Reviewed And Are Negative: No - Comments Additional Review of Systems Comments: ROS is limited. Patient is level 5 caveat. Physical Exam - Summary Physical Exam Summary: VITAL SIGNS: Reviewed. GENERAL: Patient is wit altered mental status. HEAD AND FACE: No signs of trauma. No ecchymosis, hematomas or skull depressions. EYES: Pupils MOUTH: Oral mucosa dry NECK: Supple, trachea is midline, no adenopathy, no JVD, no carotid bruit. LUNGS: Decreased breath sounds. CVS: Bradycardia, no murmurs ABDOMEN: Soft and decrease BS. EXTREMITIES: No edema noted. NEURO: altered mental status SKIN: Dry and warm Triage Information Reviewed: Yes Vital Signs Reviewed: Yes Diagnostics - Laboratory Result Diagrams: 07/31/18 09:30 07/31/18 09:30 Lab Statement: Any lab studies that have been ordered have been reviewed, and results considered in the medical decision making process. - EKG 0915 Cardiac Rate: Bradycardia - 29 BPM Summary of EKG Findings: Junctional rhythm Disposition - Course Assessment/Plan: Patient is a 73-year-old male who presents via ambulance with chief complaint of being found on the floor unconscious and now with altered mental status. As per EMS the patient was very hypotensive and bradycardic. They started IV fluids and the blood pressure was 100/60. However he continues to be in the 40s. In the ED course unable to obtain a history from the patient the patient is with altered mental status, he is agitated and trying to pull off EKG leads. Therefore I give the patient 2mg of Ativan. Past medical history significant for: 1: Hyponatremia with decreased serum osmolality. 2: Atrial fibrillation. 3: Diabetes mellitus. 4: Non-small cell lung carcinoma: 5: Congestive heart failure. [9824] Discussed case with Dr. Xiong, cardiology , who wants me to talk to the family about an external/temporary pacemaker. [ 6429] I had a discussion with the patients Bing Macedo and she requested no CPR, no intubation therefore the patient is DNR/DNI. The patients reports that he has a very aggressive lung cancer therefore, she was only wants comfort care she doesnt want any type of interventions. I explained to the patients that if I do not do anything the patient would pass away. She understands and agrees. I discussed the case with Dr. Murray and accepted the patient for admission. Prior to admission, patient's family asked to talk to me. While in the room patient ; time of 11:15. I spoke with Dr. Drea Rooney who released the patient from her jurisdiction. Patient oncologist , Dr. Rios agrees to sign the certificate. - Diagnoses Provider Diagnoses: Altered mental status, Lung cancer - Physician Notifications Discussed Care Of Patient With: Shayy Rey - hospitalist Time Discussed With Above Provider: 09:57 Instructed by Provider To: Admit As Inpatient Discharge - Sign-Out/Discharge Documenting (check all that apply): Patient Departure - Patient Received Moderate/Deep Sedation with Procedure: No - Discharge Plan Condition: Disposition: Referrals: No Primary Care Phys,NOPCP [Medical Doctor] - - Billing Disposition and Condition Condition: Disposition: - Attestation Statements Document Initiated by Scribe: Yes Documenting Scribe: Della Staley Provider For Whom Kapil is Documenting (Include Credential): Immanuel Marti MD Scribe Attestation: Della Connelly, scribed for Immanuel Marti MD on 07/31/18 at 1846. Scribe Documentation Reviewed: Yes Provider Attestation: The documentation as recorded by the Della campuzano accurately reflects the service I personally performed and the decisions made by Immanuel fragoso MD Status of Scribe Document: Viewed
[2018-07-31 09:48] LABS: INR 1.27 (0.82-1.09)
[2018-07-31 09:53] LABS: Hematocrit 35 % (42-52); Hemoglobin 10.5 g/dL (14.0-18.0); Mean Corpuscular HGB Conc 30 g/dL (31-36); Mean Corpuscular Hemoglobin 28 pg (27-31); Mean Corpuscular Volume 94 fL (80-94); Platelet Count 468 10^3/uL (150-450); Red Cell Distribution Width 20 % (10.5-15); White Blood Count 19.2 10^3/uL (3.5-10.8)
[2018-07-31 09:59] LABS: ALT 23 U/L (7-52); AST 28 U/L (13-39); Albumin 2.9 g/dL (3.2-5.2); Albumin/Globulin Ratio 0.8 (1-3); Alkaline Phosphatase 143 U/L (34-104); BUN/Creatinine Ratio 21.2 (8-20); Blood Urea Nitrogen 117 mg/dL (6-24); Calcium 7.7 mg/dL (8.6-10.3); Chloride 99 mmol/L (101-111); Creatine Kinase 286 U/L (10-223); EGFR African American 12.4 (>60); EGFR Non-African American 10.2 (>60); Globulin 3.6 g/dL (2-4); Glucose 201 mg/dL (70-100); Magnesium 2.5 mg/dL (1.9-2.7); Sodium 132 mmol/L (135-145); Total Protein 6.5 g/dL (6.4-8.9)
[2018-07-31 10:02] LABS: Anion Gap 26 mmol/L (2-11); CO2 Carbon Dioxide 7 mmol/L (22-32); Potassium 6.8 mmol/L (3.5-5.0); Troponin I 0.05 ng/mL (<0.04)
[2018-07-31 10:13] LABS: ABS Basophils 0.2 10^3/ul (0-0.2); ABS Lymphocytes 0.2 10^3/ul (1.0-4.8); ABS Monocytes 0.5 10^3/ul (0-0.8); ABS Neutrophils 18.3 10^3/ul (1.5-7.7); Acanthocytes 1+; Lymphocyte % 1.1 %; Nucleated Red Blood Cells % 0.1
[2018-07-31 10:33] LABS: Acetaminophen < 15 mcg/mL; Alcohol < 10 mg/dL (<10); Salicylate < 2.50 mg/dL (<30)
[2018-07-31 10:48] LABS: TSH (Thyroid Stimulating Horm) 2.74 mcIU/mL (0.34-5.60)
== END 2018-07-31 11:53 | disposition expired ==
LOC: ED 09:10
DX: R41.82 Altered mental status, unspecified (principal); C34.90 Malignant neoplasm of unspecified part of unspecified bronchus or lung; R00.1 Bradycardia, unspecified; E11.9 Type 2 diabetes mellitus without complications; Z79.4 Long term (current) use of insulin; Z88.5 Allergy status to narcotic agent; Z87.891 Personal history of nicotine dependence
CPT/HCPCS: 36415; 80053; 80320; 80329; 82140; 82550; 83605; 83735; 84443; 84484; 85025; 85610; 93005; 96374; 99284; G0480; J2060